=== PATIENT | female | born 1945 | race Caucasian/White ===

== ENCOUNTER 2019-07-31 12:45 | Inpatient (IN) | payer BC ==
[~2019-07-31] VITALS: Ht 175.3 cm; Wt 63.5 kg
[~2019-07-31 12:45] MED LIST: ASPIRIN EC325 MG PO; PERCOCET 7.5-31 EACH PO; TUMS200 MG PO; VITAMIN D400 UNIT PO; XARELTO20 MG PO
[2019-07-31] MEDS ORDERED: FUROSEMIDE20 MG PO (17:15)
[2019-07-31] MEDS ORDERED: KLOR-CON M1010 MEQ PO (17:16)
[2019-07-31] MEDS ORDERED: XARELTO20 MG PO (17:16)
[2019-07-31] MEDS ORDERED: METOPROLOL SUCC50 MG PO (17:17)
[2019-07-31] MEDS ORDERED: VITAMIN D400 UNI2 PO (17:18)
--- NOTE | 2019-07-31 19:15 | NUR ---
BEDSIDE REPORT RECEIVED FROM KIA SHERIFF. PT RESTING IN BED, WEAK, DIZZY. 2PA TO BSC FOR VOID AND BACK TO BED. BILLING SPEC KETAN TO LAB TO RETRIEVE ORDERED PRBC'S. KIA SANDHU REMAINS IN ROOM WITH PT. TELE [address], AFIB. CALL LIGHT IN REACH. ORIENTATION TO ROOM PROVIDED. PT VERBALIZES UNDERSTANDING TO USE CALL LIGHT PRIOR TO GETTING OUT OF BED.
--- NOTE | 2019-07-31 19:30 | NUR ---
BLOOD ADMINISTRATION STARTED. NO SIGNS OF REACTION NOTED.VSS. PT RESTING IN BED WITH EYES CLOSED. BREATHING EVEN AND UNLABORED. RN STAYING WITH PT FOR FIRST 15 MINUTES OF BLOOD PRODUCT ADMINISTRATION.
--- NOTE | 2019-07-31 19:44 | EKG ---
[facility] [address] [place], [place] [address] Signed Atrial fibrillation Nonspecific ST and T wave abnormality Abnormal ECG No previous ECGs available Confirmed by VASILIY THOMPSON DO ([id number]) on 07/31/2019 7:44:03 PM Electronically Signed By: VASILIY THOMPSON DO 07/31/19 1944 PATIENT NAME: BIMAL CHEEK Electrocardiogram DATE OF : 47 PHYSICIAN: VASILIY THOMPSON DO REPORT #: [id number] REPORT IS CONFIDENTIAL AND NOT TO BE RELEASED WITHOUT AUTHORIZATION
--- NOTE | 2019-07-31 19:45 | NUR ---
PT HAS NO S/S OF BLODD ADMINISTRATION REACTION IN THE FIRST 15 MINUTES. RATE OF ADMINISTRATION INCREASED. VSS. IV SITE CLEAN,DRY, INTACT. NO REDNESS, LEAKAGE OR SWELLING AT IV SITE. PT RESTING IN BED WITH EYES CLOSED. RR 16, EVEN, UNLABORED. CALL LIGHT AND PERSONAL BELONGINGS IN REACH.
--- NOTE | 2019-07-31 21:44 | NUR ---
CONSENT FOR SURGERY SIGNED BY PT AND WITNESSED BY RN. PT REPOSITIED TO LEFT SIDE WITH PILLOWS. SCDS APPLIED. PT DENIES OTHER NEEDS AT THIS TIME. BELONGINGS AND CALL LIGHT WITHIN REACH.
--- NOTE | 2019-07-31 22:45 | NUR ---
FIRST UNIT PACKED RED BLOOD CELLS INFUSED. NO ADVERSE REACTION NOTED. VSS. SCHEDULED IV MEDICATION ADMINISTERED. SECOND UNIT PACKED RED BLOOD CELLS VERIFIED WITH SECOND FLATWORK IRONER CHERIE AND INITIATED. KIA CRESPO REMAINS IN ROOM.
--- NOTE | 2019-08-01 00:30 | NUR ---
CHECKED ON PT. RESTING IN BED AWAKE. BLOOD PRODUCTS INFUSING WNL. NO ADVERSE REACTIONS NOTED. PT HAS NO REQUESTS AT THIS TIME. CALL LIGHT IN REACH.
--- NOTE | 2019-08-01 02:09 | NUR ---
SECOND UNIT PRBC'S COMPLETE AT 0140. VSS. NO ADVERSE REACTION NOTED. ELECTRIC FURNACE OPERATOR IN ROOM DRAWING LABS. ASSESSMENT COMPLETE. PT DENIES PAIN. MINIMAL EDEMA NOTED BLE. LUNG SOUNDS CLEAR THROUGHOUT. HR 68, IRREGULAR ON TELE 6. CALL LIGHT IN REACH. DENIES TOILETING NEEDS AT THIS TIME. IVF INFUSING WNL ORDERED.
--- NOTE | 2019-08-01 02:48 | NUR ---
CRITICAL LAB VALUE FOR HEMOGLOBIN RECEIVED, NOTIFIED VIA TELEPHONE. NEW ORDER FOR 1 UNIT PRBC TO INFUSE REPEATED BACK. LAB NOTIFIED OF NEW ORDER PLACED.
--- NOTE | 2019-08-01 03:51 | NUR ---
PACKED RED BLOOD CELLS VERIFIED WITH SECOND KIA CRESPO. IV SITE FLUSHED WNL AND PRBCS INFUSING WNL. VSS. KIA CRESPO REMAINS IN ROOM WITH PT. PT RESTING IN BED, SLEEP MASK AND SCDS IN PLACE.
--- NOTE | 2019-08-01 04:39 | NUR ---
CALL LIGHT ANSWERED, 2PA TO PIVOT TO BSC FOR VOID AND BACK TO BED. GAIT UNSTEADY. PT DENIES DIZZINESS. STANDING WEIGHT 134.1. SCDS ON. BLOOD INFUSING WNL IN LEFT AC. CALL LIGHT IN REACH.
--- NOTE | 2019-08-01 05:33 | NUR ---
CALL LIGHT ANSWERED. REPOSITIONED WITH TWO RN ASSIST HIGHER IN BED, TOES TOUCHING EDGE OF BED. REDNESS NOTED ON RIGHT HEEL, HEEL PROTECTORS PLACED. CALL LIGHT IN REACH. BLOOD PRODUCTS INFUSING WNL.
--- NOTE | 2019-08-01 06:07 | NUR ---
2PA TO PIVOT TO BSC FOR VOIDS. PT WEAK, DIZZY W EXERTION. 3 UNITS PACKED RED BLOOD CELLS THIS SHIFT. TELE 6, IRREGULAR RHYTHM, RATE CONTROLLED. NPO SINCE MIDNIGHT. EGD SCHEDULED FOR 0900. SCDS IN PLACE. USING CALL LIGHT APPROPRIATELY.
--- NOTE | 2019-08-01 07:55 | NUR ---
PATIENT AMBULATED TO BEDSIDE COMMODE, WITH 2 PERSON SBA AND WEAK GAIT. AMBULATED BACK TO BED, LAYING IN HIGH FOWLERS. IV FLUIDS RUNNING AT 75 MLS/HR. ASSESSMENT COMPLETE, VITAL SIGNS TAKEN. PREPROCEDURE CHECKLIST COMPLETE. WARM BLANKETS PROVIDED. DENIES ANY FURTHER NEEDS AT THIS TIME, CALL LIGHT WITHIN REACH.
--- NOTE | 2019-08-01 08:17 | NUR ---
PATIENT RESTING IN BED. RN IN ROOM. CLEANED HANDS AND FACE. CALL LIGHT WITHIN REACH. NO OTHER NEEDS AT THIS TIME
--- NOTE | 2019-08-01 09:22 | NUR ---
PATIENT WENT FOR EKG AT 0850, LINENS CHANGED.
--- NOTE | 2019-08-01 09:31 | NUR ---
08/01/19 0931 Tonia Lawson 0923-PATIENT ARRIVED TO PACU ON 6L NC NONAROUSABLE. RR EVEN. AFIB. LAYING LEFT LATERAL ABDOMEN SOFT. PATIENT HAS DROOL AND WAS SUCTIONED CLEAR SPUTUM. 0930-PATIENT REACTIVE TO VOICE DENIES PAIN EYES CLOSED. ON 2L NC. VERY DROWSY
--- NOTE | 2019-08-01 10:20 | NUR ---
PATIENT RESTING IN BED. RN IN ROOM. VITAL SIGNS AND I&O DONE. CALL LIGHT WITHIN REACH. NO OTHER NEEDS AT THIS TIME
--- NOTE | 2019-08-01 11:13 | NUR ---
PATIENT RESTING IN BED, STILL VERY SLEEPY FROM EGD. VITALS ARE STABLE, PATIENT IS ON ROOM AIR, DENIES NEEDS.
--- NOTE | 2019-08-01 12:19 | NUR ---
PATIENT SITTING UP IN BED WATCHING TV. PATIENT DENIES PAIN OR NAUSEA AFTER FINISHING LUNCH. BOWEL PREP INITIATED. PATIENT DENIES ANY FURTHER NEEDS AT THIS TIME, CALL LIGHT WITHIN REACH.
--- NOTE | 2019-08-01 12:21 | NUR ---
MED REC COMPLETE
--- NOTE | 2019-08-01 14:44 | NUR ---
PATIENT RESTING IN BED. VITAL SIGNS AND I&O DONE. LOW DYASTOLIC BLOOD PRESSURE AND PATIENT DID NOT VOID DURING THIS PERIOD. RN NOTIFIED. CALL LIGHT WITHIN REACH. NO OTHER NEEDS AT THIS TIME
--- NOTE | 2019-08-01 15:10 | NUR ---
PATIENT SITTING UP IN BED WATCHING TV. PATIENT PROVIDED WITH PURPLE POWERADE ZERO WITH MIRALAX AT BEDSIDE AND ENCOURAGED TO DRINK. PATIENT DENIES PAIN OR NAUSEA AT THIS TIME. CASE MANAGEMENT IN ROOM. DENIES ANY FURTHER NEEDS, CALL LIGHT WITHIN REACH.
--- NOTE | 2019-08-01 15:40 | NUR ---
SPOKE WITH PATIENT IN ROOM. SHE LIVES ALONE IN A APARTMENT 5-PLEX. HAS FEW STEPS IN, DENIES ISSUES WITH AMBULATION. SHE HAS A CANE AND SHE HAS A WALKER AT HOME FROM PRIOR NEED. PATIENT WORKS AT [employer] AND SHE IS ANXIOUS TO GET BETTER TO GET BACK TO WORK. PATIENT DRIVES. SHE HAS PCP, DR HILL IN [place]. STATES SHE DOESN'T LIKE TO DRIVE OVER THERE SO ONLY GOES ONCE A YEAR, BUT USES WALK-IN CLINIC HERE. SHE HAS FAMILY IN [place] BUT HAS MANY FRIENDS IN THE ARE[place] THAT WILL HELP HER IF NEEDED. PATIENT STATES UNDERSTANDING OF WHY SHE IS HERE AND HOPES TO GO HOME AFTER SCOPE TOMORROW. SHE DENIES ANY BARRIERS TO GOING HOME AT DISCHARGE. NO FURTHER QUESTIONS AT THIS TIME, WILL FOLLOW NEEDED.
--- NOTE | 2019-08-01 16:09 | NUR ---
PATIENT AMBULATED TO BEDSIDE COMMODE AND PRODUCED A BOWEL MOVEMENT. SCDS PUT BACK ON, WARM BLANKETS PROVIDED. PATIENT DENIES ANY FURTHER NEEDS, CALL LIGHT WITHIN REACH.
--- NOTE | 2019-08-01 17:11 | NUR ---
PATIENT HAD AN EGD THIS MORNING WITH NO FINDINGS. PATIENT IS ON CLEAR LIQUIDS WITH BOWEL PREP. PATIENT UNDERGOING SCOPE TOMORROW MORNING, NPO AT MIDNIGHT TONIGHT. 1-2 PA WITH WALKER AND BEDSIDE COMMODE IN ROOM. TELE 6 WITH RATE CONTROLLED HR. PATIENT USES CALL LIGHT APPROPRIATELY.
--- NOTE | 2019-08-01 17:55 | NUR ---
PATIENT USING THE BASE COMMODE. RN IN ROOM. PATIENT BACKS TO BED. TWO PERSON ASSITING. VITAL SIGNS AND I&O DONE. CALL LIGHT WITHIN REACH. NO OTHER NEEDS AT THIS TIME
--- NOTE | 2019-08-01 19:11 | NUR ---
CALL LIGHT ANSWERED. PATIENT GOES TO USE BASE COMMODE. PATIENT USES WALKER. TWO PERSON ASSISTING. PATIENT BACKS TO BED. CALL LIGHT WITHIN REACH. NO OTHER NEEDS AT THIS TIME
--- NOTE | 2019-08-01 20:54 | NUR ---
up tp BSC, having loose stools, tolerating bowel prep. NPO for am procedure
--- NOTE | 2019-08-01 21:27 | NUR ---
HAD SEMI SOFT BM, BACK TO BED. COOP WITH ASSESSMENT. SCDS IN PLACE, IVF INFUSING, HOB ELEVATED, WATCHING TV, TOLERATING BOWEL PREP, CALL LIGHT AT BEDSIDE
--- NOTE | 2019-08-02 00:09 | NUR ---
UP TO BSC, COMPLETED BOWEL PREP ORAL SOLUTION, EFFECTIVE, HAVING LOOSE STOOLS. BACK TO BED 1-2PA AND FWW. REPOSITIONED IN BED. COOPERATIVE, CALL LIGHT AT BEDSIDE, AWARE OF NPO STATUS AT THIS TIME
--- NOTE | 2019-08-02 02:41 | NUR ---
up to bsc. voided, very small liquid bm present. back to bed. 2 person assist and fww. no c/o pain. ivf infusing, scds in place, NPO for am procedures, pt doing own mouth care. call light at bedside
--- NOTE | 2019-08-02 05:07 | NUR ---
Pt has been NPO for am colonoscopy, tolerated Miralax bowel prep well with good results. Pt uses 1-2PA/FWW, weak le, scoliosis, weak gait. IVF infusing w/o problems. No c/o pain or n/v this shift. Tele#[address], Irregular A_Fib rhythm, has had 5 non sustained pauses ranging from 2.28sec to 2.48sec, heart rate bradychardiac at times ranging from 33-44, non sustained. PT awakens easily with each episode, alert and oriented and has denied c/o cp or sob. Uses call light appropriately.
--- NOTE | 2019-08-02 05:57 | NUR ---
Standing weight 140#, pt weighted twice, yesterdays weight as per records show standing weight 134.1#. Up to br with 2pa,fww, voided and had liquid stook, attends changed, skin care done, Back to bed, tolerated well, IVF infusing, no taj blood noted in stool. no NV. no c/o pain. NPO for am procedure. Tele#[address]
--- NOTE | 2019-08-02 07:00 | NUR ---
DR THOMPSON NOTIFIED OF HEART PAUSES AND BRADYCHARDIC EPISODES, NO NEW ORDERS
--- NOTE | 2019-08-02 07:05 | NUR ---
REPORT RECEIVED FROM KIA PETERSON. PT RESTING ON LEFT SIDE WITH EYES CLOSED, RESPIRATIONS EVEN AND UNLABORED. BED RAILS UP. CALL LIGHT WITHIN REACH.
--- NOTE | 2019-08-02 08:34 | NUR ---
MORNING ASSESSMENT AND MEDICATION DUE. THIS RN TO BEDSIDE. PT DENIES PAIN AND NAUSEA BUT REPORTS CRAMPING "AFTER ALL THE BOWEL MEDICATION." ASSESSMENT DONE. PALE SKIN NOTED. BOWEL TONES HEARD. PT REPORTS FEELING TIRED AND FATIGUED BUT "IT'S BETTER THAN YESTERDAY." PIV TO LIZZ APPEARS INFILITRATED. DC'D PER PROTOCOL. NEW PIV STARTED IN LFA. BRISK BLOOD RETURN NOTED. IV FLUIDS INFUSING. PT ASSISTED WITH ORAL CARE, PER PT REQUESTS. LR ON STRAIGHT TUBING HUNG. PT STATES SHE HAS NO ADDITIONAL REQUESTS AT THIS TIME BUT WOULD LIKE TO "SHOWER AND EAT SOON POSSIBLE." BED RAILSUP. CALL LIGHT WITHIN REACH.
--- NOTE | 2019-08-02 10:00 | NUR ---
PT DEPARTED FOR SURGERY DEPARTMENT. REPORT GIVEN, ALL QUESTIONS ANSWERED.
--- NOTE | 2019-08-02 10:58 | NUR ---
08/02/19 1058 Tiana Pichardo 1046- PT ARRIVES TO PACU NONAROUSABLE TO NOXIOUS STIMULI. RESP EVEN AND UNLABORED. OXYGEN SAT HIGH 90'S TO 100% ON 6L VIA MASK. PT'S SYSTOLIC BP IS IN THE 70'S. MIKAL WATSON CRNA AT THE BEDSIDE. PT IS ON HER LEFT SIDE WITH HER BP CUFF ON HER RIGHT ARM. PT REPOSITIONED IN THE BED.
--- NOTE | 2019-08-02 11:43 | NUR ---
PT RETURNED FROM PACU. REPORT RECEIVED FROM KIA DELEON. PT TRANSFERES SELF TO MED/SURG BED. PT DENIES PAIN AND NAUSEA AND REPORTS SHE IS PASSING CARLOS. PT REFUSES TO DRINK ANYTHING BUT GREEN JELLO AND PURPLE POWERAID ZERO. EDUCATION DONE WITH PT REGARDING OPTIONS AND NEEDED CONTRAST FOR CT SCAN. PT VERBALIZES UNDERSTANDING AND STATES SHE WILL "TRY CRANBERRY JUICE BUT NO GAURENTEES." VITALS TAKEN. ASSESSMENT DONE. HYPERACTIVE BOWEL TONES HEARD. NO ADDITIONAL REQUESTS OR COMPLATS AT THIS TIME. CALL [employer] WITHIN REACH.
--- NOTE | 2019-08-02 11:46 | NUR ---
PT REPORTS "THIS CRANBERRY JUICE IS DELIGHTFUL." 2ND CUP PROVIDED. VEGETABLE BROTH PROVIDED. BED RAILS UP. CALL LIGHT WITHIN REACH.
--- NOTE | 2019-08-02 12:45 | NUR ---
VITALS AND MEDICATION DUE. THIS RN TO ROOM. 2ND BOTTLE OF GASTROGRAPHIN GIVEN PER IMAGING AND MD ORDER. SBA, FWW UP TO RESTROOM. PT STEADY ON FEET. VITALS TAKEN, VSS. PT BACK TO BED. IMAGING NOTIFIED THAT PT HAS HAD BOTH DOSES OF GASTROGRAPHIN. NO ADDITIONA REQUESTS OR COMPLAINTS AT THIS TIME. CALL LIGHT WITHIN REACH.
--- NOTE | 2019-08-02 13:00 | NUR ---
MD TO BEDSIDE TO TALK WITH PT. PT FINISHED WITH CONTRAST. IMAGING NOTIFIED.
--- NOTE | 2019-08-02 14:05 | NUR ---
IN FOR PTS INITIAL CASE MANAGEMENT ASSESSMENT. PT DENIES ANY NEEDS WHEN RETURNING HOME. STATES SHE LIVES INDEPENDENTLY WITH NO ISSUES.
--- NOTE | 2019-08-02 14:20 | NUR ---
PT TO CT BY WHEELCHAIR.
--- NOTE | 2019-08-02 14:20 | NUR ---
PATIENT TO IMAGING FOR ABD/PELVIS CT.
--- NOTE | 2019-08-02 15:00 | NUR ---
PT RETURNED FROM CT. PT REPORTS HUNGER. CLEAR LIQUIDS AND JELLO OFFERED. PT DECLINES JELLO "BECAUSE OF THE ANIMALS." VEGEABLE BROTH PROVIDED. PT DENIES ADDITIONAL REQUESTS OR COMPLAINTS. CALL LIGHT WITHIN REACH. BED RAILS. UP.
--- NOTE | 2019-08-02 15:42 | NUR ---
DIETARY CONSULT RECEIVED UPON ADMISSION FOR LOW BMI, HOWEVER HER BODY WEIGHT OF 102 LBS IS INCORRECT. PATIENT'S WEIGHT YESTERDAY WAS 134 LBS AND TODAY 140 LBS WHICH IS INTERESTING. HER BMI AT 134 LBS IS 19.78. CURRENTLY ON CLEAR LIQUID DIET FOR TESTING TODAY. IF NEEDED, I CAN TALK TO HER TOMORROW.
--- NOTE | 2019-08-02 15:50 | NUR ---
PT CALL LIGHT ON. PT STATES "I NEED TO HAVE A BM NOW." 1PA FWW UP TO RESTROOM. LARGE AMOUNT OF RED/PINK LIQUID STOOL NOTED IN DEPENDS AND TOILET. PT HAS CONSUMED RED JELLO X2 AND 2 CUPS CRANBERRY JUICE, SUSPECT RED STOOL COLOR IS DUE TO THESE CHOICES AT THIS TIME. WILL CONTINUE TO MONITOR. ASSESSMENT DONE. PT DENIES DIZZINESS OR AN INCREASE IN WEAKNESS. PT UP TO SHOWER WITH SALES ASSISTANT ENTERTAINMENT AND MEDIA. LUNG SOUNDS CLEAR. PT DENIES PAIN AND NAUSEA. NO ADDITIONAL NEEDS AT THIS TIME. SALES ASSISTANT ENTERTAINMENT AND MEDIA WITH PT.
--- NOTE | 2019-08-02 17:55 | NUR ---
175 - THIS RN CALLED TO ROOM BY ELONID CAMARGO PT IN BATHROOM WITH INJECTION MOLD TOOLING TECHNICIAN REPORTS PT "FELL OFF OF THE TOILET." PT ON BATHROOM FLOOR ON LEFT SIDE. PT POSIITON BRACED. CHARGE NURSE AND ADDITIONAL MEDICAL DEVICE ENGINEER CALLED TO ROOM. PT DENIES PAIN AND NAUSEA. NO DEFICITS NOTED, HOWEVER PT IS TOO WEAK TO SIT UP. LIFT TEAM CALLED. 1756 - LIFT TEAM ARRIVES. PT UP TO SITTING POSITION. TACHYCARDIA NOTED. NEW SYMPTOMS NOTED INCLUDING SLURRED SPEACH, LEFT SIDED WEAKNESS, AND VISION CHANGES. PT FAST POSITIVE. STROKE TEAM ACTIVATED. VITALS TAKEN. NIH STROKE SCORE OF 16. 1807 - PT TO CT WITH THIS RN. CT PERFORMED. 1829 - IV STARTED IN RIGHT HAND. LABS DRAWN AND SENT TO LAB PER PROTOCOL. NIH STROKE SCORE OF 18. 1840 - CTA PERFORMED. EKG COMPLETE AND GIVEN TO . 1855 - PT TRANSFERED TO CCU. REPORT GIVEN TO KIA MAGALLON. NIH STROKE SCORE OF 20. MD AT BEDSIDE. CCU RNS AT BEDSIDE. STROKE CAMERA WITH CONSULTATION TO RESERVE NEUROLOGISTS IN PROGRESS.
--- NOTE | 2019-08-02 18:14 | NUR ---
TELE STROKE CALLED, DR YE WILL CALL BACK.
--- NOTE | 2019-08-02 19:08 | NUR ---
DR. PAN CALLED AND UPDATED ON PTS STATUS.
--- NOTE | 2019-08-02 19:15 | NUR ---
BEDSIDE REPORT RECEIVED BY KIA PATTERSON. NIH COMPLETED AT THIS TIME, WITH A SCORE OF 20. TELE STROKE DOCTOR ON COMPUTER AND ASSESSING PATIENT AT THIS TIME.
--- NOTE | 2019-08-02 19:43 | NUR ---
DR THOMPSON IN TO SPEAK WITH PATIENT. INFORMED PT THAT SHE WILL BE FLYING TO [place] FOR FURTHER TREATMENT DUE TO CT RESULTS. PT AGREES TO PLAN OF CARE. PT STATES FEELING DISORIENTED AND LOSS OF SENSORY AND VISUAL PERCEPTION. ALERT AND ORIENTED TO TIME, PLACE, AND EVENT. ADAME CATHETER PLACED, AND PT PLACED ON BEDPAN AT THIS TIME. PT REMAINS VISIBLE FROM NURSES STATION.
--- NOTE | 2019-08-02 20:00 | NUR ---
SPOKE WITH KAELYN IN THE TRANSFER CENTER, JOSE LUIS CONFIRMMED AT [facility] IN THE NEURO CCU. PT FAMILY NOTIFIED BY DR THOMPSON. [facility] ACTIVATED AT THIS TIME. FURNACE UTILITY OPERATOR NOTIFIED.
--- NOTE | 2019-08-02 20:15 | NUR ---
[facility] ARRIVED TO CCU AT THIS TIME. REPORT GIVEN.
--- NOTE | 2019-08-02 20:46 | NUR ---
PT REPORT CALLED TO NEURO CCU RN AT 2029. [facility] IN ROOM AT THIS TIME GETTING PATIENT READY FOR FLIGHT. PT ALERT AND ORIENTED AT TIME OF TRANSFER. ALL BELONGINGS TRANSPORTED WITH PATIENT. PT LEFT CCU AT 2034.
--- NOTE | 2019-08-02 21:11 | EKG ---
[facility] [address] [place] [address] Signed Atrial fibrillation with rapid ventricular response ST \T\ T wave abnormality, consider inferolateral ischemia Abnormal ECG When compared with ECG of 31-JUL-2019 16:08, ST now depressed in Inferior leads ST now depressed in Lateral leads T wave inversion now evident in Inferior leads Nonspecific T wave abnormality, improved in Anterior leads Inverted T waves have replaced nonspecific T wave abnormality in Lateral leads Confirmed by VASILIY THOMPSON DO ([id number]) on 08/02/2019 9:10:52 PM Electronically Signed By: VASILIY THOMPSON DO 08/02/192110 PATIENT NAME: BIMAL CHEEK Electrocardiogram DATE OF : 47 PHYSICIAN: VASILIY THOMPSON DO REPORT #: [id number] REPORT IS CONFIDENTIAL AND NOT TO BE RELEASED WITHOUT AUTHORIZATION
--- NOTE | 2019-08-03 19:06 | CONS ---
[facility] [address] [place], [place] [address] Signed DATE OF CONSULTATION: 07/31/2019 REQUESTING PHYSICIAN: Slmi Langley M.D. PROBLEM: Profound anemia, melena. HISTORY OF PRESENT ILLNESS: This 74-year-old white woman is well known to me from the past. A number of years ago, she underwent parathyroid exploration by me where she was found to have a 2 g right lower pole parathyroid adenoma. Other parathyroid glands were normal and the thyroid was normal. She presented to the emergency room today with shortness of breath. 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 Nevertheless, she remains highly dedicated to her [employer] work. The patient presented to the emergency room with poor appetite, constipation, increasing fatigue, and lightheadedness. She is unable to work as she has had no energy. 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 She has a primary care provider in [place], but it was considered unsafe to drive to [place] and on that basis, presented to the emergency room where she was noted to have profound anemia with a hematocrit of only 18.8. Her white count was normal at 6 and platelets were 356,000. She is chronically anticoagulated with thrombin inhibitor (Xarelto, rivaroxaban). She is admitted for further evaluation and care. PAST MEDICAL HISTORY: Includes atrial fibrillation with chronic anticoagulation as before. She has had bilateral lower leg edema. SURGICAL HISTORY: Includes a prior colonoscopy by me, also history of upper endoscopy and parathyroid exploration and removal of adenoma as previously described. CURRENT MEDICINES: Include vitamin D, Lasix, potassium chloride, metoprolol, and Xarelto. ALLERGIES: She has no known drug allergies. REVIEW OF SYSTEMS: She denies any dysphagia or hematemesis. She has had black stool. Electronically Signed By: GUERITA PAN MD 08/03/19 1906 PATIENT NAME: BIMAL CHEEK CONSULTATION DATE OF : 47 REPORT #: [id number] PHYSICIAN: GUERITA PAN MD PCP: NAYE HILL MD REPORT IS CONFIDENTIAL AND NOT TO BE RELEASED WITHOUT AUTHORIZATION [facility] [address] [place], [place] [address] Signed EKG confirms atrial fibrillation with rate controlled at 92. Chest x-ray appears essentially normal. Mild left pleural effusion is noted. Colonoscopy of 2012 confirmed finding of a colonic polyp, which was excised. PHYSICAL EXAMINATION: GENERAL: She is presently on the commode. She is alert and oriented, however. She has a kyphotic spine. She has no respiratory distress. VITAL SIGNS: Pulse is irregularly irregular. ABDOMEN: Not examined at this time. EXTREMITIES: Show mild pedal edema. LABORATORY STUDIES: As previously noted. ASSESSMENT: The patient has melena and profound anemia, which may account for the symptoms she has experienced in the past few weeks. As recommended by Dr. Langley, upper endoscopy would be beneficial to assess for peptic disease. She will be held on her anticoagulation at this time of course. Clearance of her anticoagulant effect with simple abstinence (Xarelto, rivaroxaban) should allow for safe endoscopic evaluation without need for reversal of anticoagulation as she does not appear to have vigorous or active bleeding at this time. Given the low level of her hematocrit, it is highly probable that this has evolved over time rather slowly as it would not otherwise be well tolerated if it was a precipitous GI bleed. I agree with Dr. Langley's plan for transfusion therapy and continued monitoring. She is presently on the regular nursing floor, which I think is reasonable considering her overall clinical status. The risks of bleeding, infection, and perforation were reviewed with her. She understands and wished to proceed. We will figure out a time to do this tomorrow when her clinical picture becomes more clear. MD PARADISE Dupont/TYRELL /[id number] cc: Slim Langley MD Electronically Signed By: GUERITA PAN MD 08/03/19 1906 PATIENT NAME: BIMAL CHEEK CONSULTATION DATE OF : 47 REPORT #: [id number] PHYSICIAN: GUERITA PAN MD PCP: NAYE HILL MD REPORT IS CONFIDENTIAL AND NOT TO BE RELEASED WITHOUT AUTHORIZATION [facility] [address] [facility] [place] [address] Signed Copies: SLIM LANGLEY DO ~ Electronically Signed By: GUERITA PAN MD 08/03/19 1906 PATIENT NAME: BIMAL CHEEK CONSULTATION DATE OF : 47 REPORT #: [id number] PHYSICIAN: GUERITA PAN MD PCP: NAYE HILL MD REPORT IS CONFIDENTIAL AND NOT TO BE RELEASED WITHOUT AUTHORIZATION
--- NOTE | 2019-08-03 19:06 | OR ---
[facility] [address] [place], [place] [address] Signed DATE OF OPERATION: 08/01/2019 SURGEON: Guerita Pan MD PREOPERATIVE DIAGNOSES: Profoundly low hematocrit (15.8), chronic anticoagulation with Xarelto, and reported melena. POSTOPERATIVE DIAGNOSIS: Normal esophagus, stomach and duodenum other than hiatal hernia. PROCEDURE: Esophagogastroduodenoscopy. ANESTHESIA: Propofol infusion; Jrodi Mohr CRNA. INDICATION: This 74-year-old white woman is a patient of Dr. Hill and known to me from the past having undergone parathyroid adenoma excision in the past as well as colonoscopy several years ago. The patient was admitted by Dr. Langley having been found to be weak and with a hematocrit of only 15.8. Transfusion allowed the hematocrit to rise to 26. She is chronically anticoagulated for atrial fibrillation with Xarelto and that medicine has been withheld. She has had no hematemesis. She denies any abdominal pain. She is admitted to undergo upper endoscopy to assess if a peptic source of bleeding may account for her anemia and melena. She understands the risks of bleeding, infection, and perforation related upper endoscopy and wished to proceed. FINDINGS: The esophagus, stomach and duodenum were essentially normal, though she did have a hiatal hernia. There was no sign of ulceration, blood or other lesion to account for anemia. DESCRIPTION OF PROCEDURE: The patient was brought to the endoscopy suite and given topical Hurricaine spray hypopharyngeal anesthesia and placed in lateral decubitus position. Hypopharyngeal anesthesia had been undertaken with Hurricaine spray. A bite block was placed. An Olympus video upper endoscope was passed in the hypopharynx. The vocal cords appeared normal. Scope was advanced to the esophagus throughout its length, it was normal. Scope was then advanced to the stomach, which was insufflated with air. Rugal folds Electronically Signed By: GUERITA PAN MD 08/03/19 1906 PATIENT NAME: BIMAL CHEEK OPERATIVE REPORT DATE OF : 47 REPORT #: [id number] PHYSICIAN: GUERITA PAN MD PCP: NAYE HILL MD REPORT IS CONFIDENTIAL AND NOT TO BE RELEASED WITHOUT AUTHORIZATION [facility] [address] [place], [place] [address] Signed were normal. There was no sign of blood or sign of lesion to account for anemia. The scope was passed through the pylorus into the duodenum, which was normal. The scope was withdrawn and retroflexed view undertaken showed a hiatal hernia, but again no sign of proximal gastric bleeding or other issue. Scope was withdrawn to the esophagus and careful inspection upon withdrawal showed no abnormality. The scope was removed. The patient was taken to recovery room in good condition. CONCLUDING DIAGNOSIS: No lesion on upper endoscopy to account for anemia or bleeding. PLAN: Recommend colonoscopy. We will prep today and do procedure tomorrow. I have reviewed this with Dr. Langley. MD PARADISE Dupont/SUSAN /[id number] cc: MD Slim Grande MD Copies: NAYE HILL MD, BRIAN DO ~ Electronically Signed By: GUERITA PAN MD 08/03/19 1906 PATIENT NAME: BIMAL CHEEK OPERATIVE REPORT DATE OF : 47 REPORT #: [id number] PHYSICIAN: GUERITA PAN MD PCP: NAYE HILL MD REPORT IS CONFIDENTIAL AND NOT TO BE RELEASED WITHOUT AUTHORIZATION
--- NOTE | 2019-08-03 19:06 | OR ---
[facility] [address] [place], [place] [address] Signed DATE OF OPERATION: 08/02/2019 SURGEON: Guerita Pan MD PREOPERATIVE DIAGNOSIS: Severe anemia and melena. Negative upper endoscopy. POSTOPERATIVE DIAGNOSIS: Neoplasm of cecum. PROCEDURE PERFORMED: Total colonoscopy to cecum with biopsy of neoplasm of cecum. ANESTHESIA: Intravenous sedation, propofol infusion; Julia Sampson CRNA. INDICATION: This 74-year-old white woman has had progressive weakness and so forth and presented to the emergency room on July 31, 2019, where she was noted to have hematocrit of 15. She has been transfused since that time. She has also reported episodic melena. She underwent upper endoscopy by me yesterday, which was essentially normal. She underwent a bowel prep and is today to undergo colonoscopy to better characterize the source of her anemia. The risks of bleeding, infection, and perforation was reviewed with her. She understands, wished to proceed. FINDINGS: The prep was quite good. Complete colonoscopy was undertaken to the cecum. There was a neoplasm of the cecum. No doubt the source of her anemia. It was not resectable endoscopically and it appears to infiltrate into the wall consistent with cancer. The remaining colon was normal. DESCRIPTION OF PROCEDURE: The patient was brought to the surgery endoscopy suite and placed in lateral decubitus position, given intravenous sedation with propofol infusional technique by the hydraulics engineer. Notably, the patient has been chronically anticoagulated with Pradaxa and has been off the medication for more than 48 hours. After satisfactory intravenous sedation, digital rectal examination was performed, which was normal. An Olympus video colonoscope was passed in the rectum and manipulated throughout the colon and ultimately intubating the cecum where the neoplasm was found at the entry point of the cecum. It appeared friable and was villous in its appearance, but infiltrative. It appeared to Electronically Signed By: GUERITA PAN MD 08/03/19 1906 PATIENT NAME: BIMAL CHEEK OPERATIVE REPORT DATE OF : 47 REPORT #: [id number] PHYSICIAN: GUERITA PAN MD PCP: NAYE HILL MD REPORT IS CONFIDENTIAL AND NOT TO BE RELEASED WITHOUT AUTHORIZATION [facility] [address] [place] [id number] Signed surrounding tissue and not amenable to excision endoscopically so far as could be told. Multiple biopsies were taken of the lesion to affirm its probable malignant nature. When adequate specimens were obtained, the scope was then withdrawn and examination throughout showed no sign of other abnormality. Retroflexed view of the rectum was normal. Scope was removed. The patient was taken to recovery room in good condition. CONCLUDING DIAGNOSIS: Neoplasm of cecum likely accounting for her anemia. Her chronic anticoagulation makes this friable lesion more prone to bleeding obviously. She will likely need resection of this area. We will obtain appropriate studies including a CT scan and CEA level. MD PARADISE Dupont/TYRELL /[id number] cc: MD Slim Grande MD Copies: NAYE HILL MD, BRIAN DO ~ Electronically Signed By: GUERITA PAN MD 08/03/19 1906 PATIENT NAME: BIMAL CHEEK OPERATIVE REPORT DATE OF : 47 REPORT #: [id number] PHYSICIAN: GUERITA PAN MD PCP: NAYE HILL MD REPORT IS CONFIDENTIAL AND NOT TO BE RELEASED WITHOUT AUTHORIZATION
== END 2019-08-02 20:35 | disposition short-term general hospital (02) | DRG 374 ==
LOC: ED 12:45 → MS 18:28 → CCU 18:28
PROVIDERS: Surgery; ADMIT Student in an Organized Health Care Education/Training Program
PROC: 30233N1 Transfusion of Nonautologous Red Blood Cells into Peripheral Vein, Percutaneous Approach (ICD-10-PCS; 2019-07-31)
PROC: 0DJ08ZZ Inspection of Upper Intestinal Tract, Via Natural or Artificial Opening Endoscopic (ICD-10-PCS; principal; 2019-08-01 10:00)
PROC: 0DBH8ZX Excision of Cecum, Via Natural or Artificial Opening Endoscopic, Diagnostic (ICD-10-PCS; 2019-08-02)
DX: C18.0 Malignant neoplasm of cecum (principal); I63.031 Cerebral infarction due to thrombosis of right carotid artery; I63.311 Cerebral infarction due to thrombosis of right middle cerebral artery; R41.4 Neurologic neglect syndrome; D63.0 Anemia in neoplastic disease; I48.91 Unspecified atrial fibrillation; M79.89 Other specified soft tissue disorders; R29.810 Facial weakness; H54.7 Unspecified visual loss; Z79.01 Long term (current) use of anticoagulants; Z79.899 Other long term (current) drug therapy
CPT/HCPCS: 36415; 36430; 70450; 70496; 70498; 71045; 74177; 80048; 80053; 82378; 83540; 83735; 83880; 84100; 84466; 84484; 85025; 85610; 86850; 86900; 86901; 86920; 93005; 93010; 99285-25; C9113; J2250; J2405; J2704; J3010; J7120; P9016; Q9967

== ENCOUNTER 2020-09-25 07:27 | Emergency (ER) | payer OTHER, MEDICARE ==
[~2020-09-25] VITALS: Ht 175.3 cm; Wt 63.5 kg
[~2020-09-25 07:27] MED LIST changes: +FUROSEMIDE20 MG PO; +KLOR-CON M1010 MEQ PO; +METOPROLOL SUCC50 MG PO; +VITAMIN D400 UNI2 PO
[2020-09-25] MEDS ORDERED: ELIQUIS5 M1 PO (09:08)
[2020-09-25] MEDS ORDERED: LIPITOR80 MG GT (09:08)
[2020-09-25] MEDS ORDERED: ATIVAN0.5 MG PO (09:08)
[2020-09-25] MEDS ORDERED: HYDROXYZINE PAM25 MG PO (09:09)
[2020-09-25] MEDS ORDERED: SARAFEM10 MG PO (09:09)
[2020-09-25] MEDS ORDERED: MACROBID 100 M100 MG PO (09:10)
[2020-09-25] MEDS ORDERED: ZYPREXA10 MG PO (09:11)
[2020-09-25] MEDS ORDERED: OLANZAPINE2.5 MG PO (09:12)
[2020-09-25] MEDS ORDERED: SENNA8.6 MG PO (09:12)
[2020-09-25] MEDS ORDERED: ONDANSETRON ODT8 MG PO (09:12)
[2020-09-25] MEDS ORDERED: TRAZODONE HCL50 MG PO (09:12)
== END 2020-09-25 11:30 | disposition home or self-care (01) ==
LOC: ED 07:27
DX: S00.03XA Contusion of scalp, initial encounter (principal); I50.9 Heart failure, unspecified; I48.91 Unspecified atrial fibrillation; Z79.899 Other long term (current) drug therapy; W01.198A Fall on same level from slipping, tripping and stumbling with subsequent striking against other object, initial encounter
CPT/HCPCS: 70450; 96374; 96375; 99284-25; J2060; J2270; J2405

== ENCOUNTER 2020-09-26 21:44 | Emergency (ER) | payer MEDICARE, OTHER ==
[~2020-09-26] VITALS: Ht 175.3 cm; Wt 81.6 kg
[~2020-09-26 21:44] MED LIST changes: +ATIVAN0.5 MG PO; +ELIQUIS5 M1 PO; +HYDROXYZINE PAM25 MG PO; +LIPITOR80 MG GT; +MACROBID 100 M100 MG PO; +OLANZAPINE2.5 MG PO; +ONDANSETRON ODT8 MG PO; +SARAFEM10 MG PO; +SENNA8.6 MG PO; +TRAZODONE HCL50 MG PO; +ZYPREXA10 MG PO
== END 2020-09-26 23:48 | disposition home or self-care (01) ==
LOC: ED 21:44
DX: R53.81 Other malaise (principal); R53.83 Other fatigue; I50.9 Heart failure, unspecified; I48.91 Unspecified atrial fibrillation; Z79.899 Other long term (current) drug therapy
CPT/HCPCS: 80053; 81001; 85025; 99283

== ENCOUNTER 2020-10-15 09:11 | Emergency (ER) | payer MEDICARE, OTHER ==
[~2020-10-15] VITALS: Ht 175.3 cm; Wt 81.6 kg
[~2020-10-15 09:11] MED LIST changes: -LIPITOR80 MG GT; +LIPITOR80 MG PO; +METOPROLOL SUCC25 MG PO; -METOPROLOL SUCC50 MG PO; +PROZAC10 MG PO; -SARAFEM10 MG PO
[2020-10-15] MEDS ORDERED: ASPIRIN81 MG PO (10:19)
[2020-10-15] MEDS ORDERED: LAMOTRIGINE25 MG PO (10:20)
[2020-10-15] MEDS ORDERED: BUSPIRONE HCL15 MG PO (10:22)
[2020-10-15] MEDS ORDERED: AMOX TR-K CLV1 EAC1 PO (13:00)
[2020-10-15] MEDS ORDERED: BACLOFEN10 MG PO (13:00)
--- NOTE | 2020-10-15 18:36 | EKG ---
[facility] [address] [facility] [place] [address] Signed Atrial fibrillation with rapid ventricular response ST \T\ T wave abnormality, consider inferior ischemia ST \T\ T wave abnormality, consider anterolateral ischemia Abnormal ECG When compared with ECG of 26-DEC-2019 08:37, Vent. rate has increased BY 36 BPM T wave inversion now evident in Inferior leads T wave inversion more evident in Anterolateral leads Confirmed by ANY SMITH MD ([id number]) on 10/15/2020 6:35:49 PM Electronically Signed By: ANY SMITH MD 10/15/20 1836 PATIENT NAME: BIMAL CHEEK Electrocardiogram DATE OF : 47 PHYSICIAN: ANY SMITH MD REPORT #: [id number] REPORT IS CONFIDENTIAL AND NOT TO BE RELEASED WITHOUT AUTHORIZATION
== END 2020-10-15 18:07 | disposition home or self-care (01) ==
LOC: ED 09:11
DX: E86.0 Dehydration (principal); S32.10XD Unspecified fracture of sacrum, subsequent encounter for fracture with routine healing; S32.502D Unspecified fracture of left pubis, subsequent encounter for fracture with routine healing; Z20.828 Contact with and (suspected) exposure to other viral communicable diseases; X58.XXXD Exposure to other specified factors, subsequent encounter; I50.9 Heart failure, unspecified; I48.91 Unspecified atrial fibrillation; Z79.899 Other long term (current) drug therapy; Z79.82 Long term (current) use of aspirin
CPT/HCPCS: 51701; 70450; 71045; 74177; 80053; 81001; 83605; 83690; 84484; 85025; 93005; 93010; 99285-25; C9803; J2405; J7030; Q9967; U0003

== ENCOUNTER 2020-10-22 11:55 | Inpatient (IN) | payer MEDICARE, OTHER ==
[~2020-10-22] VITALS: Ht 175.3 cm; Wt 76.6 kg
[~2020-10-22 11:55] MED LIST changes: +ADULT ASPIRIN R81 MG PO; +AMOX TR-K CLV1 EAC1 PO; -ATIVAN0.5 MG PO; +ATIVAN1 MG PO; +BACLOFEN10 MG PO; +BUSPIRONE HCL15 MG PO; +LAMOTRIGINE25 MG PO
[2020-10-22] MEDS ORDERED: BUSPIRONE HCL15 MG PO (12:32)
--- NOTE | 2020-10-22 18:28 | NUR ---
PATIENT ARRIVES TO CCU FROM ER VIA STRETCHER AT 1715 FOR SEPSIS ADMISSION. PT IS MOVED TO CCU BED X4 PERSON ASSIST. PT RESPONDS TO THIS MOVEMENT WITH CRYING OUT IN PAIN. PT OTHERWISE UNABLE TO REALLY COMMUNICATE, BUT IS AWAKE WITH EYES OPEN. PT HAS PAST HX OF CVA LEAVING LEFT SIDE WEAKNESS AND LEFT HAND NOTED TO BE CONTRACTED INWARDS. PT LIV[facility]. PT ARRIVES ON DILT GTT AT 10 MG/HR. ORAL CARE PROVIDED AND PATIENT HAS EXTENSIVE WHITE SLUDGE IN MOUTH, ON TEETH, COATING TONGUE. WHILE DOING ORAL CARE, PATIENT NOTED TO BE GAGGING ON SPUTUM AND EVEN HAD A PERIOD OF BRADYCARDIA AFTER GAGGING AND ALMOST VOMITING. PT ABLE TO COUGH UP MORE LARGE AMOUNTS OF THICK, WHITE SPUTUM LIKE MATERIAL. PT'S TEETH LOOK TO BE IN VERY POOR SHAPE, GUMS FRIABLE. SKIN IN POOR CONDITION WITH DRYNESS AND REDNESS TO CERTAIN AREAS. PICTURES TAKEN FOR CHART. LEFT ANKLE LATERAL ASPECT HAS A WOUND. COCCYX RED AND INITIALLY NOT BLANCHING BUT LATER WAS BLANCHING AFTER REPOSITIONING PATIENT OFF COCCYX. RIGHT OUTER HEEL HAS A NONBLANCHING AREA WITH 2 DARK SPOTS NOTED INSIDE IT. DILT GTT TURNED DOWN TO 5 MG/HR AT 1815. D5 INFUSING AT 85 ML/HR AND NEXT SET OF LABS TO BE DRAWN AT 1999. NEW IV PLACED IN RIGHT FOREARM. CONTINUE TO MONITOR.
--- NOTE | 2020-10-22 19:18 | NUR ---
CALLED DR. AGARWAL AND UPDATED ON URINE OUTPUT AND HR. DR. AGARWAL WANTING 2000 DOSE OF LOPRESSOR TO BE GIVEN NOW AND ATTEMPT TO WEAN PATIENT OFF DILT GTT. URINE OUTPUT OF 50 ML OVER 2 HRS WAS REPORTED AND WILL CONTINUE TO MONITOR AT THIS TIME, AND WILL UPDATE DR. AGARWAL IF IT FALLS BELOW 25 ML/HR. REPORT TO N MARCIANO WONG.
--- NOTE | 2020-10-22 20:30 | NUR ---
SHIFT REPORT RECEIVED FROM KIA CAST. PT IS BECOMING MORE RESPONSIVE, ABLE TO TELL ME HER NAME WHEN ASKED AND SQUEEZED HER RIGHT HAND WHEN ASKED. SHE IS CRYING/MOANING AND STATES "PAIN" AND "HURT". REPOSITIONED HER ONTO HER RIGHT SIDE AND IMMEDIATELY SHE APPEARED MORE COMFORTABLE AND STARTED TO FALL ASLEEP. TEMP: 100.6 AXILLARY, TYLENOL SUPPOSITORY ADMINISTERED. LUNGS CLEAR, DIM IN BASES, 2L NC IN PLACE. HR IRREGULAR RATE NOW 80-90'S, CARDIZEM DRIP TURNED OFF AT THIS TIME. BOWEL TONES ACTIVE. SKIN IS FRAGILE AND PALE, ALLEVYN DRESSINGS TO COCCYX AND LEFT ANKLE, HEEL PROTECTORS IN PLACE. ADAME PATENT, CATH CARE PROVIDED. IV SITES INTACT AND PATENT, BOTH FOREARM IV'S HAVE BLOOD RETURN.
--- NOTE | 2020-10-22 21:51 | NUR ---
OXYGEN TITRATED OFF FOR SPO2 OF 100% ON 2L.
--- NOTE | 2020-10-22 22:25 | NUR ---
CALLED AND SPOKE TO DR. AGARWAL REGARDING PT'S LOW UO, ORDER RECEIVED FOR 500ML LR BOLUS, STARTED AT THIS TIME. ALSO UPDATED HIM THAT THE CARDIZEM DRIP IS OFF AND THAT PT HAD 100.6 TEMP EARLIER THAT HAS NOW COME DOWN TO 99.0. IN TO REPOSITION PT AT THIS TIME, BUT PT IS SLEEPING SOUNDLY AND APPEARS COMFORTABLE, WILL DEFER REPOSITIONING FOR A LITTLE BIT LONGER TO ALLOW FOR REST.
--- NOTE | 2020-10-22 23:00 | NUR ---
PT REPOSITIONED SUPINE WITH BILATERAL HIPS FLOATED ON PILLOWS. ARMS AND LEGS ELEVATED ON PILLOWS. ORAL CARE PROVIDED. PT TOLERATED FAIR.
--- NOTE | 2020-10-23 00:23 | NUR ---
DR. AGARWAL CALLED AND MADE AWARE OF LOW UO, ORDER RECEIVED TO INCREASE IVF RATE TO 150ML/HR. VITAL SIGNS STABLE. LUNGS REMAIN CLEAR, RA. PT SLEEPING AT THIS TIME, NO APPARENT DISTRESS. HR REMAINS IRREGULAR RATE 60-70'S, CARDIZEM REMAINS OFF. IV SITES INTACT. WILL ALLOW FOR REST AND CONTINUE TO MONITOR.
--- NOTE | 2020-10-23 01:06 | NUR ---
PT REPOSITIONED ONTO LEFT SIDE WITH PILLOW SUPPORT.
--- NOTE | 2020-10-23 02:29 | NUR ---
PT PLACED BACK ON 2L O2 VIA NC FOR DESATURATION TO 83-85% WHILE ASLEEP.
--- NOTE | 2020-10-23 03:08 | NUR ---
PT REPOSITIONED ONTO RIGHT SIDE WITH PILLOW SUPPORT, HEEL PROTECTORS IN PLACE. ORAL CARE PROVIDED, PT TOLERATED WELL. VITAL SIGNS STABLE.
--- NOTE | 2020-10-23 04:10 | NUR ---
PT CONTINUES TO SLEEP, NO APPARENT DISTRESS. RESPIRATIONS EVEN AND UNLABORED, LUNGS CLEAR, 2L O2 VIA NC IN PLACE. HR REMAINS IRREGULAR, RATE 60'S. AFEBRILE. IV SITES INTACT AND FLUIDS INFUSING WNL.
--- NOTE | 2020-10-23 05:03 | NUR ---
PT AWAKE, MORE ALERT, ANSWERS "OK" WHEN I TOLD HER I WAS GOING TO MOVE SOME PILLOWS TO SHIFT HER WEIGHT. REPOSITIONED ONTO HER BACK AT THIS TIME, ARMS AND LEGS ELEVATED ON PILLOWS.
--- NOTE | 2020-10-23 06:44 | NUR ---
REPOSITIONED PT ONTO LEFT SIDE WITH PILLOW SUPPORT, PT TOLERATED WELL. IV IN RIGHT FOOT D/C'D (EMS START), CATHETER TIP INTACT, PT TOLERATED WELL.
--- NOTE | 2020-10-23 07:30 | NUR ---
PATIENT SHIFT REPORT RECIEVED FROM WORKERS COMPENSATION CLAIMS EXAMINER RN. PATIENT RESTING IN BED AT THIS TIME. PER REPORT PATIENT IS DOING BETTER THROUGH THE NIGHT. PATIENT ABLE TO ANSWER ONE WORD ANSWERS. WILL CONTINUE TO CLOSELY MONTIOR.
--- NOTE | 2020-10-23 08:45 | NUR ---
PATIENT SHIFT ASSESSMENT COMPLETED. PATIENT RESTING IN BED. PATIENT ALERT TO NAME, PALCE. PATIENT ANSWERES YES/NO QUESTIONS AND RESPONDS TO OTHERS WITH ONE WORD. PATIENT UNABLE TO MOVE LEFT ARM AND LEG WHEN ASKED. PATIENT MOVES RIGHT ARM AND LEG MINIMALLY. BOWEL TONES ACTIVE. BREATH SOUNDS CLEAR AND DIMINISHED. PATIENTS SKIN IS WARM AND DRY. RIGHT ARM 22G IV IS INFILTRATED. WILL REMPOVE AND REPLACE IV. TV TURNED ON PATIENT REQUESTS HALLMARK CHANNEL. WILL CONTINUE TO CLOSELY MONITOR.
[2020-10-23] MEDS ORDERED: MILK OF MA400 MG/5 M PO (09:52)
--- NOTE | 2020-10-23 10:00 | NUR ---
PATIENT UP TO CHAIR VIA LENNY LIFT. PATIENT TOLERATED WELL. PATIENT POSITIONED WITH PILLOWS FOR COMFORT. CLEANED PATIENTS MOUTH AND WHILE CLEANING PATIENT VASOVAGALED AND HR DROPPED TO THE 30'S. MD AT THE BEDSIDE. PATIENTS HR BACK UP ON ITS OWN. WILL CONTINUE TO CLOSELY MONITOR.
[2020-10-23] MEDS ORDERED: 8 HOUR650 MG PO (10:06)
[2020-10-23] MEDS ORDERED: BISACODYL10 MG PR (10:23)
[2020-10-23] MEDS ORDERED: ZOFRAN4 MG PO (10:24)
[2020-10-23] MEDS ORDERED: PEPTO-BISM262 MG/15 PO (10:24)
[2020-10-23] MEDS ORDERED: TYLENOL325 MG PO (10:25)
--- NOTE | 2020-10-23 10:25 | NUR ---
MEDR REC COMPLETE
--- NOTE | 2020-10-23 10:43 | NUR ---
Gave pt. bed bath, washed hair, Bed linens changed. moved pt. to chair via flory lift. picked up room. no other needs at this time
--- NOTE | 2020-10-23 10:45 | NUR ---
PATIENT BEDSIDE SWALLOW COMPLETED. PATIENT ABLE TO SWOLLOW WATER. SPO2 MAINTINED GOOD. NOTED SOME THROAT CLEARING. PATIENT ATE A BITE OF APPLE SAUSE AND TOLERATED WELL. SPEECH THERAPY CONSULT PER MD. WILL AWAIT THERAPIST EVAL AND KEEP PATIENT NPO A THIS TIME.
--- NOTE | 2020-10-23 11:10 | NUR ---
Call from Shanti at [facility]. She states pt has been declining for last several months. She would like a Hospice consult. Spoke with Dr. Landon, he does not feel pt would meet critieria for hospice at this time. He suggest they go through her pcp if she cont. to decline. Shanti notified.
--- NOTE | 2020-10-23 11:15 | NUR ---
PATIENT STARTED TO VOMIT AND HAD SEVERAL PAUSES AND HR IN THE 30'S. MD AGARWAL AT THE BEDSIDE. ZOFRAN WAS GIVEN. PATIENT HR BACK UP TO THE 80'S AFTER INCIDENT. WILL KEEP PATIENT NPO. KARLENE AT THE BEDSIDE. WILL CONTINUE TO CLOSELY MONITOR.
--- NOTE | 2020-10-23 12:00 | NUR ---
PATIENT SITTING UP IN THE CHAIR. PATIENT ASSESSMENT COMPLETED. PATIENT IS A LITTLE MORE DROWSY AT THIS TIME THAN PRIOR IN THE SHIFT. PATIENT RESTING WITH HER EYES CLOSED. PATIENT DENIES ANY OTHER NEEDS. WILL CONTINUE TO CLOSELY MONITOR.
--- NOTE | 2020-10-23 14:00 | NUR ---
PATIENT TRANSFERED FROM CHAIR TO BED VIA LENNY LIFT. PATIENT TOLERATED WELL. MOSHE ADAM IN TO PLACE AN IV. PATIENT DENIES ANY OTHER NEEDS AT THIS TIME. WILL CONTINUE TO CLOSELY MONITOR.
--- NOTE | 2020-10-23 16:31 | NUR ---
PATIENT REPOSITIONED WITH PILLOW SUPPORT. PATIENT TOLERATED WELL. PATIENT IS MORE AWAKE AGAIN THIS AFTERNOON AFTER GETTING A NAP. PATIENT FOLLOWING COMMANDS AND SAYING MULTIPLE WORDS AT A TIME INSTEAD OF ONE WORD RESPONSES. WILL CONTINUE TO CLOSELY MONITOR.
--- NOTE | 2020-10-23 18:30 | NUR ---
UPDATED MD AGARWAL ABOUT PATIENTS STATUS. PATIENT YELLING OUT AND COMPLAINS OF PAIN IN NECK/BACK. SEE NEW ORDERS. PATIENT IS MORE AWAKE THIS EVENING AND TALKING IN KUMAR SENTENCES. PATIENT WILL TRANSFER TO THE MEDICAL FLOOR ROOM 120. WILL GIVE REPORT TO CHARGE AND GAMBLING CASHIER RN.
--- NOTE | 2020-10-23 19:00 | NUR ---
Update from Lashanda ADAM. Pt doing better, more alert and able to answer questions. Moved to rm 120 on medical floor.
--- NOTE | 2020-10-23 19:05 | NUR ---
SHIFT REPORT RECEIVED FROM [facility] KIA MENDEZ AT BEDSIDE. PT DROWSY, BUT AWOKE TO VOICE. RESPONDS WITH ONE OR TWO WORD PHRASES. APPEARS COMFORTABLE, NO DISTRESS NOTED. IV SITE SALINE LOCKED. HEEL PROTECTORS IN PALCE. BOARD UPDATED WITH CALL LIGHT IN REACH.
--- NOTE | 2020-10-23 19:15 | NUR ---
REPORT GIVEN TO CELESTE ADAM. PATIENT RESTING IN BED AT THIS TIME. PATIENT DENEIS ANY OTHER NEEDS. INTRODUCED PATIENT TO HER NEW NURSE. PER MD AGARWAL PATIENT TO BE NPO UNTIL TOMORROW WITH BEDSIDE SWALLOW EVAL TEST. NO FURTHER QUESTIONS AT THIS TIME.
--- NOTE | 2020-10-23 21:00 | NUR ---
ASSESSMENT COMPLETE, SCHEDULED MEDS GIVEN (SEE EMAR). PT NPO PER SHIFT REPORT. HAS EVAL WITH SPEECH THERAPY SCHEDULED. THIS RN SPOKE WITH DR AGARWAL FOR CLARIFICATION. PER DR AGARWAL, KEEP PT NPO BUT PT CAN HAVE PO MEDS. ATTEMPTED TO GIVE MED WITH WATER, PT UNABLE TO MANIPULATE STRAW. MED CRUSHED AND GIVEN WITH APPLESAUCE. NO ISSUES NOTED. PER TELEPHARMACY, OKAY TO CRUSH MED. PT REPOSITIONED, VSS. ADAME PATENT AND DRAINING. HEEL PROTECTORS IN PLACE. CALL LIGHT IN REACH.
--- NOTE | 2020-10-23 21:31 | EKG ---
[facility] [address] [facility] [place] [address] Signed Atrial fibrillation with rapid ventricular response ST \T\ T wave abnormality, consider inferolateral ischemia Abnormal ECG Confirmed by JENNIE AGARWAL MD ([id number]) on 10/23/2020 9:30:52 PM Electronically Signed By: JENNIE AGARWAL MD 10/23/202130 PATIENT NAME: BIMAL CHEEK Electrocardiogram DATE OF : 47 PHYSICIAN: JENNIE AGARWAL MD REPORT #: [id number] REPORT IS CONFIDENTIAL AND NOT TO BE RELEASED WITHOUT AUTHORIZATION
--- NOTE | 2020-10-23 21:40 | NUR ---
PT CALLING OUT, ENTERED ROOM. SHE ASKS "WHAT DO I DO IF I CAN'T DRINK?" TOLD PT SHE IS GETTING IV FLUIDS TO KEEP HER HYDRATED AND ASSISTED TO SWAB HER MOUTH. PT KEEPS REPEATING THE SAME THING AND ADVISED HER TO TRY TO FORGET ABOUT IT AND GO TO SLEEP. BED ALARM IS ON AND PT IS CLOSE TO RN STATION.
--- NOTE | 2020-10-23 23:00 | NUR ---
PT REPOSITIONED AT THIS TIME WITH HELP FROM RAMAN ARBOLEDA. NEW ORDERS VERIFIED FOR LR AT 75MLS/HR, FLUIDS HUNG AND INFUSING ALONG WITH SCHEDULED IV ABX. IV SITE WNL. CALL LIGHT IN REACH, HOB ELEVATED AT 45 DEGREES.
--- NOTE | 2020-10-24 01:15 | NUR ---
ASSESSMENT COMPLETE, NO NEW CHANGES OR CONCERNS. PT AWOKE TO VOICE, DENIES PAIN AND NAUSEA. SLOW TO ANSWER QUESTIONS. PT ABLE TO STATE HER NAME AND CORRECTLY. PT STATES, "SURE" WITH LONG PAUSE WHEN ASKED IF SHE KNOWS HER LOCATION. REPOSITONED IN BED WITH HELP FROM RAMAN ARBOLEDA. ADAME PATENT, LOW UO. WILL MONITOR. IV FLUIDS INFUSING, SITE WNL. ORAL CARE ALSO DONE. CALL LIGHT IN REACH, PT DENIES FURTHER NEEDS.
--- NOTE | 2020-10-24 04:00 | NUR ---
PT REPOSITIONED WITH HELP FROM KIA SANDHU. HIPS PREVIOUSLY FLOATED. PILLOW PLACED UNDER RIGHT SHOULDER FOR COMFORT. ORAL CARE DONE, SCANT GAGGING NOTED, BUT WITH NO EMESIS. ORAL CARE STOPPED. HOB REMAINS ELEVATED AT 45 DEGREES. IV FLUIDS INFUSING, SITE WNL. HEEL PROTECTORS IN PLACE. CALL LIGHT IN REACH.
--- NOTE | 2020-10-24 04:40 | NUR ---
PT YELLING OUT FOR HELP, THIS RN IN ROOM TO ASSESS. PT ASKED WHAT'S WRONG, PT STATES, "I DON'T KNOW". AFTER LONG PAUSE, PT ASKS "WHY AM I SO LETHARGIC?". THERAPEUTIC COMMUNICATION REGARDING PT'S INFECTION AND IV ABX'S. PT EDUCATED ON INFECTION MANAGEMENT AND PLAN OF CARE. NO FURTHER NEEDS, CALL LIGHT IN REACH AND PT IS CLOSE TO RN STATION.
--- NOTE | 2020-10-24 07:15 | NUR ---
In room for shift report from Louisa ADAM. Pt report included: Pt was brought over just before shift change from the CCU. So far the pt has been oriented to self and pleasant with the staff. Pt does tend to moan/yell when moved, but denies pains. Pt has wound on her coccyx with an allevyn in place, pt being turned Q2. Pts urine output was about 35-40mls under sufficiency, Louisa notified MD on EMAR note, no call. Pt currently repositioned in bed to her right side, pillow under left side. Pt verbalized comfort and has no further needs at this time. Pt in bed, side rails up x4, table and call light within reach. Pt curtains open, visible to nurses station. CBG was 143.
--- NOTE | 2020-10-24 07:38 | NUR ---
MESSAGE SENT TO DR AGARWAL REGARDING PT'S UO.
--- NOTE | 2020-10-24 08:24 | NUR ---
PT ALERT AND QUIET AT TIME OF BEDSIDE REPORT. REPOSITIONED FOR PRESSURE RELIEF.
--- NOTE | 2020-10-24 11:01 | NUR ---
In room for turning. Pt coccyx wound assessed and dressing removed. Wound is kind of an ashen pink/purple, skin unbroken, area still blanches. Site cleaned with wound cleanser and sterile gauze, dried, then new allevyn placed. Pt turned in bed to her right side, pillows under the left side. Pt positioned to comfort. Pt denies pain and nausea at this time. Pt given new gown. Pt in bed, side rails up, table and call light within reach. Pts curtain open, pt visible from nurses station.
--- NOTE | 2020-10-24 11:04 | NUR ---
PT REPOSITIONED, WOUND UNCOVERED AT THAT TIME CLEANSED AND COVERED WITH FRESH ALLEVYN. PT MOVED TO SIDE POSITION APPROPRIATELY. ORAL CARE PROVIDED. PT AGREES SHE IS COMFORTABLE.
--- NOTE | 2020-10-24 12:03 | NUR ---
In room for industrial paramedic and turning. Pt CBG was 167, 1 unit of insulin given per sliding scale orders. Pt repositioned in bed onto her left side, pillows under the right side. Pt assessed for BM, none present at this time, north area appears unsoiled. Pt in bed, side rails up x4, table and call light within reach.
--- NOTE | 2020-10-24 12:17 | NUR ---
PT FAST ASLEEP, DID NOT DISTURB. WILL CHECK BACK
--- NOTE | 2020-10-24 12:51 | NUR ---
In room for rounding with Dipesh KOCH. assessed pt thoroughly. MD will have new orders for pt care. Speech therapy eval still needed. Yumiko ADAM spoke to outpatient speech therapy office about pending eval for pt. Office will be getting the eval done as soon as speech therapist is availible. Pt in room, side rails up x4, table and call light within reach.
--- NOTE | 2020-10-24 14:00 | NUR ---
In room for turning. Pt turned to right side, pillows under left side. Pt positioned to comfort. Pt denies pain and nausea at this time. Pt in bed, side rails up x4, table and call light within reach.
--- NOTE | 2020-10-24 14:38 | NUR ---
PATIENT RESTING IN BED, EYES CLOSED. WOKE TO VOICE. VITALS AND I&OS CHARTED. ADAME EMPTIED, CALL LIGHT IN REACH, GARBAGE EMPTIED. NO OTHER NEEDS AT THIS TIME
--- NOTE | 2020-10-24 15:56 | NUR ---
Pt moans, does not answer questions.
--- NOTE | 2020-10-24 17:16 | NUR ---
In room for med pass. evening meds were crushed and mixed into one spoonful of applesauce. Pt was able to take meds in applesauce with great difficulty. Pt is not safely swallowing. The applesauce sat in her mouth much of the time, pt made severall attempts to swallow before applesauce would go down. No coughing noted, so not likely into her lungs. Pts applesauce followed with a sip of water, which also took several attempts to actually swallow. Pt in bed, table and call light in reach. Curtain open and pt visible from nurses station.
--- NOTE | 2020-10-24 17:23 | NUR ---
PATIENT AWAKE IN BED, RN IN ROOM. VITALS AND I&OS CHARTED. ADAME EMPTIED, GARBAGE EMPTIED. CALL LIGHT IN REACH
--- NOTE | 2020-10-24 17:45 | NUR ---
Pt taken to imaging, by two imaging techs. Pt alert and cooperative, breathing even and unlabored. Denies pain and nausea.
--- NOTE | 2020-10-24 18:34 | NUR ---
MD Langley notified about pts difficulty swallowing. Description of today's med passes and the recommendation from the speech therapist were included. MD aware. No new orders given verbally at this time.
--- NOTE | 2020-10-24 19:15 | NUR ---
SHIFT REPORT RECEIVED FROM BRIAN ADAM AND ROMEL ADAM. PT RESTING IN BED, EYES CLOSED. RR EVEN, UNLABORED. CALL LIGHT IN REACH. DOOR OPEN. BED ALARM ON.
--- NOTE | 2020-10-24 20:24 | NUR ---
pt calls out "Evangelina" when staff checks on pt and asks if there is anything she needs she states, "No, I am fine, thanks for checking on me".
--- NOTE | 2020-10-24 20:28 | NUR ---
PT IS CALLING OUT EVERARDO BUT WHEN ASKED IF SHE NEEDS ANYTHING SHE SAYS NO. IV BUMP WAS BEEPING AND IS NOW INFUSING FINE. CALL LIGHT IS CLOSE AND BED ALARM IS ON.
--- NOTE | 2020-10-24 20:30 | NUR ---
IN RM TO GET VITALS, SECOND STYLE ADVISOR TO GET GLUCOSE READING, I&Os DONE, ADAME EMPTIED AND CATH CARE DONE, ORAL CARE COMPLETED AT THIS TIME, NO FURTHER NEEDS
--- NOTE | 2020-10-24 21:06 | NUR ---
ASSESSMENT COMPLETED. PT REPOSITIONED. PT ALERT TO PERSON, RESPONDS TO VOICE, ANSWERS SOME QUESTIONS APPROPRIATELY. NOT ORIENTED TO PLACE, EVENTS OR TIME. LUNGS CLEAR, HEART TONES IRREGULAR. ABD SOFT, NONTENDER, BOWEL TONES ACTIVE. SCHEDULED MEDS PROVIDED. IV WNL, CDI. FLUSHED WELL. ALLEVYN INTACT ON COCCYX. SCATTERED BRUISING NOTED. CMS INTACT ON RIGHT SIDE, DECREASED MOVEMENT ON LEFT SIDE. ORAL AND ADAME CARE PROVIDED. PT STATES HER NECK IS STIFF. IV FLUIDS INFUSING PER ORDER. NO OTHER NEEDS, CALL LIGHT IN REACH. BED ALRM ON, DOOR OPEN.
--- NOTE | 2020-10-24 22:37 | NUR ---
PT AWAKE IN ROOM. SCHEDULED MED PROVIDED. NO OTHER NEEDS. CALL LIGHT IN REACH.
--- NOTE | 2020-10-24 23:06 | NUR ---
PT REPOSITIONED. NO OTHER NEEDS. CALL LIGHT IN REACH.
--- NOTE | 2020-10-25 01:15 | NUR ---
PT REPOSITIONED. ADAME EMPTIED BY ROBLES CAMARGO, WNL. PT SLEPT THROUGH CHANGE OF POSITION. RR EVEN, UNLABORED. CALL LIGHT IN REACH, BED ALARM ON. DOOR OPEN.
--- NOTE | 2020-10-25 01:27 | NUR ---
IN RM WITH RN TO TURN PT, PT REST RESTING AT THIS TIME
--- NOTE | 2020-10-25 01:58 | NUR ---
PT RESTING IN BED, EYES CLOSED. RR EVEN, UNLABORED. IV FLUIDS INFUSING PER ORDER. SCHEDULED MED PROVIDED. NO OTHER NEEDS AT THIS TIME. CALL LIGHT IN REACH, BED ALARM ON, DOOR OPEN.
--- NOTE | 2020-10-25 03:17 | NUR ---
PT REPOSITIONED. SKIN ASSESSMENT COMPLETED WITH BEEF CATTLE GRAZIERKIA ISRAEL. ASSESSMENT COMPLETED. IVs WNL, CDI, IV FLUIDS INFUSING PER ORDER. SCATTERED BRUISING NOTED. BLANCHABLE RED AREAS ON COCCYX, LEFT SIMBA AND RIGHT HEEL. HEEL PROTECTORS ON. COCCYX AND LEFT ANKLE COVERED WITH ALLEVYN. LUNGS CLEAR, HEART TONES IRREGULAR. ABD SOFT, NONTENDER, BOWEL TONES ACTIVE. CMS INTACT. ADAME WNL. ORAL CARE PROVIDED. NO OTHER NEEDS AT THIS TIME. CALL LIGHT IN REACH. DOOR OPEN.
--- NOTE | 2020-10-25 03:19 | NUR ---
ASSISTED IN REPOSITIONING PT WITH PRIMARY RN PHOEBE. PT HAS A REDENNED AREA ON HER RT LATERAL HEEL WHICH IS BLANCHABLE WITH HEEL PROTECTORS IN PLACE. LEFT LATERAL ANKLE HAS HAS A DIM SIZE SCABBED AREA COVERED WITH ALLEVYN. COCCYX HAS AN ALLEVYN IN PLACE AND REDENNED AREA AROUND ANUS HAS SOME AREAS THAT AT NON BLANCHABLE.
--- NOTE | 2020-10-25 05:40 | NUR ---
VS AND I&O COMPLETED. ADAME EMPTIED, URINE IS YELLOW, CLEAR. PT REPOSITIONED. NO OTHER NEEDS AT THIS TIME. PT RESTING WITH EYES CLOSED. RR EVEN, UNLABORED. CALL LIGHT IN REACH, BED ALARM ON. DOOR OPEN.
--- NOTE | 2020-10-25 05:53 | NUR ---
IN RM TO GET VITALS/I&Os, 2QTURNED PT, EMPTIED NOEL ADAME APPLYIED AT THIS TIME, PT IS RESTING, NO FURTHER NEEDS
--- NOTE | 2020-10-25 06:57 | NUR ---
PT WAS URINE INSUFFICIENT BY 15ML THIS SHIFT ADAME CARE PROVIDED, ADAME FLUSHED. BLADDER SCAN REVEALS <5ML. NOTIFIED BY Floored MESSAGING.
--- NOTE | 2020-10-25 07:10 | NUR ---
To room for shift report from Bailey ADAM. Pt report included: Pt was able to converse more interactively when the shiftman first began, then for the rest of the night conversed only minimally. Pts VSS throughout the shift. Pt is voiding insufficient amounts of urine at this time. Pt currently in bed, table and call light within reach, breathing even and unlabored, curtains open, pt visible from nurses station.
--- NOTE | 2020-10-25 07:30 | NUR ---
PATIENT SLEEPING. WHITE BOARD UPDATED. CALL LIGHT WITHIN REACH. NO OTHER NEEDS AT THIS TIME
--- NOTE | 2020-10-25 08:20 | NUR ---
REPOSITIONED PT TO RIGHT SIDE WITH PILLOWS UNDER LEFT BUTTOCK AND BACK. PTTOLERATED WELL. PT AWOKEN TO ANSWER QUESTIONS THEN QUICKLY FELL BACK ASLEEP. SKIN ASSESSED.. COCCYX PRESSURE SORE COVERED WITH ALLYVEN. RIGHT HEEL PRESSURE SORE BLANCHABLE JALEN SIZE AND OPEN TO AIR. LEFT LATERAL FOOT PRESSURE ULCER COVERED WITH ALLEVYN.
--- NOTE | 2020-10-25 08:32 | NUR ---
PATIENT RESTING IN BED. RN IN CHARGE IN ROOM. ORAL CARE DONE. PATIENT REPOSITIONED ON HER RIGHT SIDE. CALL LIGHT WITHIN REACH. NO OTHER NEEDS AT THIS TIME
--- NOTE | 2020-10-25 09:30 | NUR ---
In room for assessment and med pass. Pt assessment complete, lower lobes diminished, difficult to hear, VSS. Shared my concerns about pts inability to swallow with the charge this morning, Janki RN (charge) reported that MD Langley changed her orders to IV and SUPP. Pt is more alert today than yesterday, pt still oriented only to self. Pt denies pain and nausea at this time. Pt keeping her eyes closed while she talks to us. Pt able to get all her meds as ordered. Pt still has had no BM, getting SUPP bisacodyl starting today. Pt in bed, side rails up x4, table and call light within reach.
--- NOTE | 2020-10-25 09:30 | NUR ---
PATIENT RESTING IN BED, EYES CLOSED. VITAL SIGNS AND I&O DONE. CALL LIGHT WITHIN REACH. NO OTHER NEEDS AT THIS TIME
--- NOTE | 2020-10-25 10:15 | NUR ---
In room to assist physical therapy with cares. [place] physical therapist working with patient. Pt sat up with legs off the bedside, with full assistance. Pt unable to maintain any upright posture on her own. Pt able to converse with us about her cares. Pt sat up and talked to while hair was combed and therapy continued. Pt was unable to sit upright or control her right arm consistently enough to hang onto the side rail. Pt back to bed and turned to her left side, pillows under her right. Pt HOB at 45degress, side rails up x4, table and call light within reach. Oral care also completed, using the suction oral care kit, suction, mouth moisturizer and chap stick. Pt tolerated well and expressed gratitude for her mouth feeling much better.
--- NOTE | 2020-10-25 10:53 | NUR ---
Vancomycin trough level = 15.6, continue dosing 1000mg IV q 12 hrs
--- NOTE | 2020-10-25 11:16 | NUR ---
In room for medical device engineer. Spoke to Angie pharmacist about pts elevated vancomycin troph. Angie assures me that the pt will still be getting ordered dosage of vancomycin due to being within the range on her troph that the MD set. ABX hung and is infusing as ordered. IV site patent and shows n s/sx of infiltration or infection. Pt repositioned in her bed onto her right side, pillows under her left side. Pt denies pain and nausea at this time. Pt in bed, side rails up x4, table and call light within reach. Pt curtains open and door cracked, visible from nurses station.
--- NOTE | 2020-10-25 11:26 | NUR ---
PATIENT RESTING IN BED. PATIENT REPOSITIONED ON HER LEFT SIDE. TWO PERSON ASSISTING. CALL LIGHT WITHIN REACH. NO OTHER NEEDS AT THIS TIME
--- NOTE | 2020-10-25 12:30 | NUR ---
In room for bedside swallow eval by this RN and Cristiane ADAM. Pt was unable to safely swallow even 1/2 tsp of water by spoon or cup, and was completely unable to suck through a straw. Pt showed no s/sx of choking (no desaturations, no coughing, no watery eyes). Pt was at 90degrees during eval, and the protocol form for nurses swallow eval was followed. MD made aware of results. Pt is to be kept on NPO at this time.
--- NOTE | 2020-10-25 13:07 | NUR ---
Called MD Langley and informed him of pts bedside swallow eval performed by [place] RN and Cristiane ADAM. Pt was unable to safely swallow even 1/2 a teaspoon of water at a time. Pt had no apparent signs of choking. MD aware. No new orders at this time. verbalizes to keep pt on NPO as she is presently.
--- NOTE | 2020-10-25 13:10 | NUR ---
PATIENT RESTING IN BED. VITAL SIGNS AND I&O DONE. CALL LIGHT WITHIN REACH. NO OTHER NEEDS AT THIS TIME
--- NOTE | 2020-10-25 14:00 | NUR ---
Dr. Langley aware of trending borderline q/s urine output.
--- NOTE | 2020-10-25 14:38 | NUR ---
To room for rounding. Pt in bed, eyes closed, breathing even and unlabored, table and call light within reach. Curtain and door open and visible from the nurses station.
--- NOTE | 2020-10-25 15:12 | NUR ---
PATIENT RESTING IN BED. PT REPOSITIONED ON HER LEFT SIDE. TWO PERSON ASSISTING. CALL LIGHT WITHIN REACH. NO OTHER NEEDS AT THIS TIME
--- NOTE | 2020-10-25 15:28 | NUR ---
To room for rounding. Pt resting in bed, eyes closed, breathing even and unlabored, table and call light within reach, pt visible from nurses station.
--- NOTE | 2020-10-25 17:19 | NUR ---
PATIENT RESTING IN BED. PATIENT INCONTINENT OF STOOL. PERICARE PERFORMED. GOWN CHANGED. CATHETER CARE DONE. TWO PERSON ASSISTING. VITAL SIGNS AND I&O DONE. LOW DYASTOLIC BLOOD PRESSURE. RN NOTIFIED. CALL LIGHT WITHIN REACH. NO OTHER NEEDS AT THIS TIME
--- NOTE | 2020-10-25 19:05 | NUR ---
SHIFT REPORT RECEIVEDF GIOVANNA DAVIS AT BEDSIDE. PT AWAKE AND RESTING IN BED, DENIES NEEDS OR CONCERNS. IV FLUIDS INFUSING, SITE WNL. HEEL PROTECTORS IN PLACE WITH HOB ELEVATED. CALL LIGHT IN REACH, BED ALARM ON.
--- NOTE | 2020-10-25 20:25 | NUR ---
PATIENT WAS BOOSTED UP IN BED AND ADAME CARE WAS COMPLETED. CALL LIGHTIN REACH NO OTHER NEEDS AT THIS TIME.
--- NOTE | 2020-10-25 20:30 | NUR ---
ASSESSMENT COMPLETE, SCHEDULED MEDS GIVEN (SEE EMAR). PT AWAKE AND RESTING IN BED, SLOW TO RESPOND AT TIMES BUT ANSWERS SIMPLE QUESTIONS. DENIES PAIN AND NAUSEA. IV SITES X2 WNL, IV FLUIDS INFUSING. VSS, APICAL HR WNL, IRREGULAR. REPOSITIONED AT THIS TIME WITH HELP FROM RAMAN JOY. HIPS FLOATED. ALLEVYN TO COCCYX, AREAS AROUND ALLEVYN BLANCHABLE. ALLEVYN ALSO NOTED TO LEFT ANKLE. BILATERAL HEEL PROTECTORS IN PLACE. ADAME PATENT AND DRAINING. DR THOMPSON ROUNDING AT RN STATION, PER DR THOMPSON HE IS AWARE OF PT'S LOW UO AND THERE IS NO NEED TO CALL HIM. ALSO ASKED DR THOMSPON IF HE WOULD LIKE LABS PLACED THERE ARE NONE ORDERED. PER DR THOMPSON, HE WILL PLACE ORDERS FOR AM LABS.
--- NOTE | 2020-10-25 22:42 | NUR ---
STARTED LR BOLUS, POTASIUM AND VANCO INFUSIONS. PT IS RESTING WITH EYES CLOSED AT THIS TIME, RR IS EVEN AND NONLABORED. CALL LIGHT IS CLOSE.
--- NOTE | 2020-10-25 23:00 | NUR ---
PT REPOSITIONED IN BED WITH HELP FROM RAMAN JOY. PILLOW REMOVED FROM RIGHT HIP AND PILLOW REMAINS IN PLACE UNDER LEFT HIP AND ADDITIONAL PILLOW PLACED UNDER LEFT SHOULDER. HOB REMAINS ELEVATED PER ORDERS, CALL LIGHT IN REACH. IV SITES X2 REMAIN WNL.
--- NOTE | 2020-10-25 23:55 | NUR ---
2 OF 4 POTASSIUM RIDER STARTED AND INFUSING PER MD ORDERS, LIDOCAINE ADDED PER POLICY. VERIFIED WITH SECOND RN ARSLAN. IV SITE WNL. PT REFUSED ORAL CARE AT THIS TIME, NO ADDITIONAL NEEDS VERBALIZED. CALL LIGHT IN REACH. BED ALARM ON.
--- NOTE | 2020-10-26 00:42 | NUR ---
500MLS LR BOLUS COMPLETE, D5LR RESUMED AT THIS TIME, INFUSING AT 100MLS/HR, SITE WNL. CALL LIGHT IN REACH.
--- NOTE | 2020-10-26 00:51 | NUR ---
PT REPOSITIONED IN BED WITH HELP FROM RAMAN JOY. MINIMAL ORAL CARE PERFORMED, PT NOT COOPORATING VERY WELL AND REFUSED TO LET ME CLEAN HER TONGUE. PT KEEP STATING, "COME ON, WHAT'S THE PROBLEM HERE". PT REORINETED TO PLACE AND TIME. WILL MONITOR. CALL LIGHT IN REACH.
--- NOTE | 2020-10-26 00:54 | NUR ---
PATIENT IS AWAKE AND VOCAL. RN AND I REPOSITIONED PATIENT IN BED. CALL LIGHT IN REACH AND NO OTHER NEEDS AT THIS TIME.
--- NOTE | 2020-10-26 00:59 | NUR ---
3 OF 4 POTASSIUM RIDER INFUSING AT THIS TIME, 10MG IV LIDOCAINE ADDED PER POLICY AND VERIFIED BY SECOND RN LINDY. IV SITE WNL. BUE COOL TO THE TOUCH, STRONG RADIAL PULSES NOTED. WARM BLANKET PROVIDED FOR COMFORT. CALL LIGHT IN REACH.
--- NOTE | 2020-10-26 01:14 | NUR ---
PT REPEATEDLY STATING "POWER ON". THIS RN IN ROOM TO REORINET PT. WHEN ASKED WHAT PT WHAT'S TURNED ON, PT STATES "I DON'T KNOW". PT REORIENTED TO PLACE, TIME, AND SURROUNDINGS AND THERAPEUTIC COMMUNICATION PROVIDED. PT ENCOURAGED TO CLOSE EYES AND TRY AND GET SOME REST. CALL LIGHT IN REACH.
--- NOTE | 2020-10-26 02:34 | NUR ---
PT INCONTINENT OF STOOL, WITH HELP FROM RAMAN JOY, PT CLEANED UP. ADAME CARE ALSO DONE. VSS, SCHEDULED IV LOPRESSOR AND 4 OF 4 IV POTASSIUM RIDER GIVEN (SEE EMAR). IV SITES X2 WNL. PT REPOSITIONED IN BED. NO FURTHER NEEDS, CALL LIGHT IN REACH.
--- NOTE | 2020-10-26 04:20 | NUR ---
PT REPOSITIONED IN BED WITH HELP FROM BARREL ASSEMBLERKIA ISRAEL. PT AWOKE BRIEFLY THEN RETURNED TO SLEEP. CALL LIGHT IN REACH, RR EVEN AND UNLABORED.
--- NOTE | 2020-10-26 07:00 | NUR ---
PT REPOSITIONED WITH HELP FROM RAMAN JOY. PT DENIES FURTHER NEEDS, CALL LIGHT IN REACH. IV FLUIDS INFUSING, SITE WNL. HOB ELEVATED. CALL LIGHT IN REACH.
--- NOTE | 2020-10-26 07:28 | NUR ---
Patient in bed resting, respirations even and non labored. IV fluids infusing. Recently repositioned. Meyer intact, patent with clear yellow urine. Personal supplies and call light within reach.
--- NOTE | 2020-10-26 10:51 | NUR ---
PATIENT AWAKE IN BED, VITALS AND I&OS CHARTED. ADAME EMPTIED, ORAL CARE DONE AND CHAPSTICK ON LIPS.
--- NOTE | 2020-10-26 12:30 | NUR ---
Patient repositioned with second RN assist. Coccyx assessed, skin is closed. New allyvn placed at this time for skin protection. Patient tolerated turning well. Oral care provided at this time. Meyer remains intact, patent with clear yellow urine. No needs at this time. Hob elevated. Pillows in place to bony prominences.
--- NOTE | 2020-10-26 13:29 | NUR ---
PATIENT AWAKE IN BED, VITALS AND I&OS CHARTED. ATTEMPTED ORAL CARE, PATIENT WOULD NOT ALLOW SPONGE PAST TEETH. CHAP STICK ON LIPS PROVIDED. ADAME EMPTIED. CALL LIGHT IN REACH
--- NOTE | 2020-10-26 15:15 | NUR ---
Larsen NOTED TO BE LEAKING.
--- NOTE | 2020-10-26 15:40 | NUR ---
pt care assumed report received.
--- NOTE | 2020-10-26 16:40 | NUR ---
2PA TO REPOSITION PATIENT ONTO RIGHT SIDE, ORAL CARE PROVIDED, CALL LIGHT IN REACH
--- NOTE | 2020-10-26 16:46 | NUR ---
ORAL CARE PROVIDED PT REPOSITIONED FOR PRESSURE RELIEF
--- NOTE | 2020-10-26 19:30 | NUR ---
RECEIVED REPORT FROM KIA URENA. pt RESTING IN BED. WHITEBOARD UPDATED. CURTAIN OPEN TO THE NURSES STATION.
--- NOTE | 2020-10-26 20:00 | NUR ---
IN TO GIVE MEDICATIONS. pt ORIENTED TO SELF. ASSESSMENT DONE. pt REPOSITIONED. ADAME CARE DONE. DID NOT GIVE ORAL MEDS pt IS NOT SWALLOWING PER REPORT. CURTAIN OPEN TO NURSES STATION.
--- NOTE | 2020-10-26 20:20 | NUR ---
pt repositioned with RN Tiana, nothing further needed at this time.
--- NOTE | 2020-10-26 20:33 | NUR ---
DR THOMPSON ON FLOOR. DISCUSSED GIVING BOWEL MEDS TO pt. OKAY TO DC AT THIS TIME pt IS NPO AND CANNOT DRINK THE REQUIRED AMOUNT OF WATER FOR THE MEDICATION.
--- NOTE | 2020-10-26 22:44 | NUR ---
IN TO TURN pt. SMEAR BM NOTED. SKIN CARE DONE. NEW DEPENDS AND CHUX. REPOSITIONED. ORAL CARE DONE. pt HAS GAG REFLEX TO SWABS IN MOUTH. ABLE TO SWALLOW WITHOUT COUGHING AT TIMES, NOT CONSISTENT. WITH ORAL CARE, SUCTION DONE. CURTAIN OPEN TO NURSES STATION.
--- NOTE | 2020-10-27 | NUR ---
pt TURNED. PAINFUL IN ARMS WHEN MOVED, PAIN RESOLVES WITH REST PER pt. DENIES PAIN AT THIS TIME. CURTAIN OPEN TO NURSES STATION.
--- NOTE | 2020-10-27 00:18 | NUR ---
pt CALLING OUT "NO" IN TO ASSESS. pt STATES "YES" WHEN ASKED IF COMFORTABLE WILL NOT EXPLAIN WHY SHE IS SAYING NO. CURTAIN OPEN TO NURSES STATION.
--- NOTE | 2020-10-27 02:11 | NUR ---
IV MED GIVEN (SEE MAR). pt RESTING IN BED, REPOSITIONED. ASSESSMENT DONE. ORAL CARE DONE. CURTAIN OPEN TO NURSES STATION.
--- NOTE | 2020-10-27 04:00 | NUR ---
ROUNDED ON pt. RESTING IN BED WITH EYES CLOSED, RESPIRATIONS REGULAR AND UNLABORED. REPOSITIONED. CURTAIN OPEN TO NURSES STATION.
--- NOTE | 2020-10-27 05:46 | NUR ---
VITALS AND I&O RECORDED. pt DENIES PAIN AT THIS TIME. REPOSITIONED. ORAL CARE DONE. CURTAIN OPEN TO NURSES STATION. CALL LIGHT WITHIN REACH.
--- NOTE | 2020-10-27 07:30 | NUR ---
PATIENT RESTING IN BED. WHITE BOARD UPDATED. PATIENT'S HANDS AND FACE WASHED. ORAL CARE DONE. CALL LIGHT WITHIN REACH. NO OTHER NEEDS AT THIS TIME
--- NOTE | 2020-10-27 07:33 | NUR ---
Patient in bed resting, eyes closed, respirations even and non labored. IV patent, fluids infusing without difficulty. Hob elevated for aspirations precautions. Pillows in use to bony prominences. Close to RN station. No needs, call light within reach.
--- NOTE | 2020-10-27 08:09 | NUR ---
PATIENT RESTING IN BED. CATHETER CARE DONE. PATIENT REPOSITIONED ON HER RIGHT SIDE. TWO PERSON ASSISTING. CALL LIGHT WITHIN REACH. NO OTHER NEEDS AT THIS TIME
--- NOTE | 2020-10-27 09:28 | NUR ---
PATIENT RESTING IN BED. VITAL SIGNS AND I&O DONE. CALL LIGHT WITHIN REACH. NO OTHER NEEDS AT THIS TIME
--- NOTE | 2020-10-27 09:34 | NUR ---
SISTER RANJANA CALLED FLOOR FOR PATIENT UPDATE. DISCUSSED HOW PATIENT IS NOT PROGRESSING, SLEEPING ALL DAY AND INABILITY TO EAT. SISTER WOULD LIKE TO DISCUSS END OF LIFE CARE OPTIONS. INFORMED SISTER DR THOMPSON WOULD BE PLACING CALL TO HER TODAY.
--- NOTE | 2020-10-27 09:51 | NUR ---
Tavarez catheter replaced due to leaking. Tavarez removed, catheter tip intact. New 16fr tavarez catheter placed, balloon instilled with 9ml sterile water, immediate return of clear yellow urine. Patient tolerated well.
--- NOTE | 2020-10-27 09:55 | NUR ---
PATIENT RESTING IN BED. PATIENT REPOSITIONED ON HER RIGHT SIDE. TWO PERSON ASSISTING. CALL LIGHT WITHIN REACH. NO OTHER NEEDS AT THIS TIME
--- NOTE | 2020-10-27 10:45 | NUR ---
Washed patient's face and provided oral care.
--- NOTE | 2020-10-27 12:33 | NUR ---
Pt speaking more today, shouting out "green beans" frequently. This RN asked pt if she was hungry and she continues to state "no". Flacc scale 0/10. Q2hr turning continued for pressure relief to bony prominences. Oral care provided. Patient has no needs at this time. Personal supplies and call light within reach.
--- NOTE | 2020-10-27 13:00 | NUR ---
Attempted to speak with Tyesha. She is yelling, "green beans" repeatedly. In and asked if she hurts or needs anything. Asked if she wants to go home, she is unable to state where she lives. I asked if she lives at [facility], she states yes. Then begins yelling "[facility]." Spoke with Shanti from [facility]. They are requesting Hospice for this pt. ST cont. for pt to remain NPO. Updated Shanti, I talked with Dr. Langley this am and requested he call the sister. She had called and spoke with the supervisor [employer] and was also requesting Hospice. Let Shanti know, I will update when I have any new information.
--- NOTE | 2020-10-27 13:10 | NUR ---
PATIENT RESTING ON HER RIGHT SIDE. VITAL SIGNS AND I&O DONE. PATIENT REPOSITIONED ON HER LEFT SIDE. TWO PERSON ASSISTING. CALL LIGHT WITHIN REACH. NO OTHER NEEDS AT THIS TIME
--- NOTE | 2020-10-27 14:00 | NUR ---
Spoke with Dr. Langley, he has spoken with pt's sister. She has questions regarding hospice and would like a call. Called and spoke with sister and questions answered. She would like Tyesha on Comfort care and no further workup. She would like her to be able to eat. She does not have preference for a hospice, will check to see which can get in first as they both have been overwhelmed with pts. She request pt be able to eat tonight if she is hungry. She reminded me, she is in [place] and to please not call late. Informed I will send chart with orders to hospice. I will notify [facility] and check to see when pt can return. Pt cara eminent, so hopefully can return this week and hospice admit when able.
--- NOTE | 2020-10-27 16:15 | NUR ---
Chart notes, H&P, orders, covid test, medication list, [facility].
--- NOTE | 2020-10-27 16:59 | NUR ---
PATIENT RESTING IN BED. VITAL SIGNS AND I&O DONE. CALL LIGHT WITHIN REACH. NO OTHER NEEDS AT THIS TIME
--- NOTE | 2020-10-27 18:16 | NUR ---
PATIENT RESTING IN BED. PATIENT REPOSITIONED ON HER LEFT SIDE. SKIN CARE DONE BY RN. TWO PERSON ASSISTING. CALL LIGHT WITHIN REACH. NO OTHER NEEDS AT THIS TIME
--- NOTE | 2020-10-27 19:05 | NUR ---
PT RESTING IN BED. ORIENTED TO PERSON ONLY. IV INFUSING PER ORDER. NO NEEDS AT THIS TIME. CALL LIGHT IN REACH.
--- NOTE | 2020-10-27 20:10 | NUR ---
V/S AND I&O DONE AND CHARTED. ADAME/CECIL AND ORAL CARE DONE. PATIENT REPOSITIONED.
--- NOTE | 2020-10-27 20:30 | NUR ---
ASSESSMENT COMPLETED. PT ORIENTED TO PERSON, DROWSY. LUNGS DIMINISHED IN LOWER LOBED, CLEAR IN UPPER LOBES. HEART TONES IRREGULAR. ABD SOFT, NONTENDER, BOWEL TONES ACTIVE. CMS INTACT. ALLEVYN ON COCCYX AND LEFT ANKLE. RIGHT HEEL REDNESS, HEEL PROTECTORS ON, HEELS FLOATED WITH PILLOW. PT REPOSITIONED. IVs FLUSHED WELL, IV FLUIDS INFUSING PER ORDER. SCHEDULED MEDS PROVIDED. CBG 143, 1 UNIT INSULIN PROVIDED. ADAME WNL, ADAME CARE PROVIDED [place] TIFFANIE CAMARGO. VS, I&O AND ORAL CARE PROVIDED BY TIFFANIE CAMARGO. NO OTHER NEEDS AT THIS TIME. CALL LIGHT IN REACH, BED ALARM ON, DOOR OPEN.
--- NOTE | 2020-10-27 21:20 | NUR ---
WENT IN TO THE ROOM AND ASKED PATIENT IF SHE NEEDS SOMETHING TO EAT. THIS HELPER [employer] OFFERED SNACK BOX TURKEY SANDWICH, PUDDING, JELLO, CRACKERS AND BROTH. PATIENT STATED "THANK YOU". OFFERED ENSURE, PATIENT STILL STATED "NO THANK YOU". THIS HELPER [employer] TOLD PATIENT TO LET US KNOW IF SHE NEEDS ANYTHING. CALL LIGHT WITHIN REACH. PRIMARY RN NOTIFIED.
--- NOTE | 2020-10-27 22:23 | NUR ---
PT RESTING IN BED, REPOSITIONED. SCHEDULED MED PROVIDED. NO OTHER NEEDS. CALL LIGHT IN REACH.
--- NOTE | 2020-10-28 00:20 | NUR ---
PT REPOSITIONED. NO OTHER NEEDS. CALL LIGHT IN REACH, DOOR OPEN.
--- NOTE | 2020-10-28 02:11 | NUR ---
SCHEDULED MEDS PROVIDED. VS AND I&O COMPLETED. PT REPOSITIONED. NO OTHER NEEDS. CALL LIGHT, DOOR OPEN. CALL LIGHT IN REACH.
--- NOTE | 2020-10-28 04:14 | NUR ---
PT REPOSITIONED. NO OTHER NEEDS. CALL LIGHT IN REACH, DOOR OPEN.
--- NOTE | 2020-10-28 07:00 | NUR ---
To room for shift report from Bailey ADAM. Report included: Pt had an uneventful evening. Pt was put on "comfort care" last night. Pt currently in bed, eyes closed, breathing even and unlabored, side rails up x4, table and call light within reach, door and curtain open, pt visible from nurses station.
--- NOTE | 2020-10-28 07:30 | NUR ---
PATIENT RESTING IN BED. WHITE BOARD UPDATED. HANDS AND FACE WASHED. ORAL CARE DONE. PATIENT COMPLAINS ABOUT NAUSEA. PATIENT ASSISTED TO SIT ON BED. RN NOTIFIED. CALL LIGHT WITHIN REACH. NO OTHER NEEDS AT THIS TIME
--- NOTE | 2020-10-28 07:31 | NUR ---
In room responding to pt nausea. Pt reports nausea with no pain. Pt given PRN zofran as ordered. Pt sitting up in bed, fowlers position for aspiration precaution. Pt given emesis bag. Pt in bed, side rails up x4, table and call light within reach, pt door and curtain open and pt visible from nurses station.
--- NOTE | 2020-10-28 08:20 | NUR ---
PATIENT SITTING UP IN BED. PATIENT REPOSITIONED ON HER LEFT SIDE. CATHETER CARE DONE. TWO PERSON ASSISTING. CALL LIGHT WITHIN REACH. NO OTHER NEEDS AT THIS TIME
--- NOTE | 2020-10-28 08:30 | NUR ---
In room for assessment and med pass. Pt CBG was 152, 1 unit of insulin given per sliding scale. Pt Assessment complete, VSS, see charting. Pt was repositioned in bed at 0800, she is currently on her left side, pillows under her right side. Pt will be turned again at 1000. Pt alert and responsive to most questions. Pt denies pain and nausea at this time. Pt got all her meds as ordered, without difficulty. Pt in bed, side rails up x4, table and call light within reach, pts door and curtain open, pt visible from nurses station.
--- NOTE | 2020-10-28 08:51 | NUR ---
MORNING MEETING WITH DISCUSSED COMFORT CARE ORDERS IN ACCU CHECKS, PT, OT, V/S. SAID OK TO D/C THESE ORDERS AT THIS TIME.
[2020-10-28] MEDS ORDERED: MORPHINE S100 MG/5 M SL (09:10)
[2020-10-28] MEDS ORDERED: LORAZEPAM2 MG/1 M2 PO (09:12)
--- NOTE | 2020-10-28 10:09 | NUR ---
PATIENT RESTING IN BED. EYES CLOSED. I&O DONE. CALL LIGHT WITHIN REACH. NO OTHER NEEDS AT THIS TIME
--- NOTE | 2020-10-28 10:41 | NUR ---
In room for med pass and turning. Pt turned to her right side, pillows under her left side. Pt denies pain and nausea at this time. Pt able to sign her POLST form. Pt ABX started as ordered. Pt oral care done, including suctioned brushing and mouth moisturizer and chapstick applied. Pt in bed, side rails up x4, table and call light within reach, pt visible from nurses station.
--- NOTE | 2020-10-28 10:45 | NUR ---
PATIENT RESTING IN BED. PATIENT REPOSITIONED ON HER RIGHT SIDE. TWO PERSON ASSISTING. CALL LIGHT WITHIN REACH. NO OTHER NEEDS AT THIS TIME
--- NOTE | 2020-10-28 11:00 | NUR ---
Dr. Langley completed POLST form with pt. She is unable to planned giving officer pen to sign. Will fax to her sister Diana for signature. POLST is for comfort care only. Diana signed a emailed POSLT back. POLST faxed to registry and then faxed to [facility].
--- NOTE | 2020-10-28 11:10 | NUR ---
In room for rounding. Pt in bed, sitting at about 40degrees, side rails up x4. Pt denies pain and nausea at this time. Pt in bed, table and call light within reach, pt visible from nurses station.
--- NOTE | 2020-10-28 11:36 | NUR ---
Orders, dc summary, rx, covid test faxed to Shanti at [facility] to [facility]. Called and scheduled ems for transport at 1:30.
--- NOTE | 2020-10-28 12:20 | NUR ---
In room for turning. Pt denies pain and nausea at this time. Pt turned in bed to her left side, pillows under her right side. Pts own clothes put on her to prepare for DC. Pt in bed, side rails upx4, table and call light within reach.
--- NOTE | 2020-10-28 12:34 | NUR ---
PT OFF THE UNIT TO IMAGING DEPT FOR MRI AND CT.
--- NOTE | 2020-10-28 13:19 | NUR ---
Pt was calling out, and audible from nurses station. This RN to room. Pt denies pain and nausea, but reports feeling unsure/anxious about transportation. Pt reassured that a safe non-emergent transportation was the plan and that she would be returning home to [facility]. Pt given warm blankets and therapeutic communication was used to reassure and calm her. Pt responded well to this. Pt in bed, table and call light within reach, pt visible from nurses station.
--- NOTE | 2020-10-28 13:24 | NUR ---
PT ASLEEP, DID NOT DISTURB. WILL CHECK BACK
--- NOTE | 2020-10-28 13:55 | NUR ---
Report called to KIA Kam at [facility].
== END 2020-10-28 13:30 | disposition hospice, home (50) | DRG 871 ==
LOC: ED 11:55 → CCU 16:56 → MS 10-23 18:50
PROVIDERS: ADMIT Internal Medicine; ATTEND Internal Medicine
DX: A41.2 Sepsis due to unspecified staphylococcus (principal); G93.41 Metabolic encephalopathy; N17.9 Acute kidney failure, unspecified; I69.354 Hemiplegia and hemiparesis following cerebral infarction affecting left non-dominant side; I48.19 Other persistent atrial fibrillation; E87.0 Hyperosmolality and hypernatremia; Z20.828 Contact with and (suspected) exposure to other viral communicable diseases; R65.20 Severe sepsis without septic shock; I69.318 Other symptoms and signs involving cognitive functions following cerebral infarction; F91.9 Conduct disorder, unspecified; D49.0 Neoplasm of unspecified behavior of digestive system; D49.59 Neoplasm of unspecified behavior of other genitourinary organ; E78.5 Hyperlipidemia, unspecified; E86.1 Hypovolemia; R73.03 Prediabetes; R13.12 Dysphagia, oropharyngeal phase; L89.151 Pressure ulcer of sacral region, stage 1; L89.610 Pressure ulcer of right heel, unstageable; L89.520 Pressure ulcer of left ankle, unstageable; Z51.5 Encounter for palliative care; Z66 Do not resuscitate; Z99.3 Dependence on wheelchair; Z74.01 Bed confinement status; Z79.01 Long term (current) use of anticoagulants; Z79.82 Long term (current) use of aspirin; Z79.899 Other long term (current) drug therapy
CPT/HCPCS: 36415; 51702; 70450; 71045; 72130; 74176; 80048; 80053; 80202; 81001; 83036; 83605; 83735; 85025; 87040; 87077; 87186; 92526; 92610; 93005; 93010; 93306; 97110; 97162; 97530; 99285-25; C9803; J0692; J1650; J1815; J2405; J3370; J3475; J3480; J7030; J7040; J7060; J7070; J7121; Q9967; U0003